=== PATIENT | female | born 1930 | race Asian ===

== ENCOUNTER 2018-06-18 05:57 | Inpatient (IN) | payer SELFPAY ==
[~2018-06-18] VITALS: Ht 162.6 cm; Wt 83.5 kg
[2018-06-18] MEDS ORDERED: Albuterol ud Inhalation HHN ONE ×2 (06:00→07:00)
[2018-06-18] MEDS ORDERED: Ipratropium 0.02% Inh Soln 2.5ml UD HHN ONE ×2 (06:00→07:00)
[2018-06-18] MEDS ORDERED: Solu-MEDROL 125mg Inj IVP ONE (06:00)
--- NOTE | 2018-06-18 06:00 | NUR ---
ED Nurse Note: Patient presents in wheelchair c/o SOB for 1 hour. Patient SpO2 at 100% on 15lpm non rebreather. Family are on bedside. Pt is AO x 4times, difficult breathing when assessment. ERMD seen Pt at bedside,
[2018-06-18] MEDS ORDERED: PREDNISONE5 M3 PO (06:02)
[2018-06-18] MEDS ORDERED: DOXYCYCLINE HYC20 M1 PO (06:02)
--- NOTE | 2018-06-18 06:27 | Emergency Room Report ---
History of Present Illness General Chief Complaint: Dyspnea/Respdistress Source: Family Member (Max Wilson MD) Source: Patient, Family Member (BENSON GABRIEL M.D) Present Illness HPI Patient is an 88-year-old female who presented after increased respiratory distress. Patient had a recent travel to the from [place]. Patient was noted to have some prior history of lung disease and had recently seen a physician was prescribed doxycycline as well as prednisone. Patient had not been taking any inhalers. She had been noted to have market increased difficulty with breathing and was having increased shortness of breath with minimal exertion. Patient does not have any known heart disease . Per family members patient had not been vomiting or having any diarrhea. She had not been having any complains of leg pain or swelling.Patient had not been having any fever.Patient had worsening difficulty breathing over the past few days. (Max Wilson MD) HPI 88-year-old female with a PMH of only some vague lung disease, recently traveled from [place] couple weeks ago, currently on doxy and prednisone started 3 days ago for a cough, c/o shortness of breath, dyspnea on exertion, no chest pain, no leg swelling, no hemoptysis, reports that she was given prescriptions for breathing treatments in [place] in the past but never takes them. (BENSON GABRIEL M.D) Allergies: Coded Allergies: No Known Allergies (Unverified , 06/18/18) Patient History Past Medical History: see triage record Last Menstrual Period: GABRIELA Now: No Reviewed Nursing Documentation: PMH: Agreed; PSxH: Agreed (Max Wilson MD) Past Medical History: see triage record Reviewed Nursing Documentation: PMH: Agreed; PSxH: Agreed (BENSON GABRIEL M.D) Nursing Documentation-PMH Past Medical History: No History, Except For Hx COPD: No - lung disease (Max Wilson MD) Review of Systems All Other Systems: negative except mentioned in HPI (Max Wilson MD) All Other Systems: negative except mentioned in HPI (BENSON GABRIEL M.D) Physical Exam Vital Signs Date Time Temp Pulse Resp B/P (MAP) Pulse Ox O2 Delivery O2 Flow Rate FiO2 06/18/18 05:58 122 30 189/128 100 Non-Rebreather 15.0 Sp02 EP Interpretation: reviewed, normal General Appearance: alert, GCS 15, moderate distress, thin, Chronically Ill Head: atraumatic ENT: normal ENT inspection, hearing grossly normal, normal voice Neck: normal inspection, full range of motion, supple, no bony tend Respiratory: no retraction, accessory muscle use, wheezing Cardiovascular #1: regular rate, rhythm, no edema Gastrointestinal: normal inspection, normal bowel sounds, non tender, soft, no guarding, no hernia Genitourinary: no CVA tenderness Musculoskeletal: normal inspection, back normal, normal range of motion Neurologic: normal inspection, alert, oriented x3, responsive, clinical nurse reviewer III-XII nml as tested, speech normal Psychiatric: normal inspection, judgement/insight normal, mood/affect normal Skin: normal inspection, normal color, no rash (Max Wilson MD) Sp02 EP Interpretation: reviewed, normal General Appearance: alert, non-toxic, moderate distress Head: normocephalic Eyes: bilateral eye normal inspection, bilateral eye PERRL, bilateral eye EOMI ENT: normal ENT inspection, hearing grossly normal, normal pharynx, no angioedema, normal voice, moist mucus membranes Neck: normal inspection, full range of motion, supple, supple/symm/no masses Respiratory: chest non-tender, respiratory distress, wheezing, chest symmetrical, palpation of chest normal Cardiovascular #1: normal peripheral pulses, regular rate, rhythm, no edema, no gallop, no JVD, no murmur, no rub Cardiovascular #2: 2+ radial (R), 2+ radial (L), 2+ dorsalis pedis (R), 2+ dorsalis pedis (L) Gastrointestinal: normal inspection, non tender, soft, no mass, no guarding, no rebound Rectal: deferred Genitourinary: normal inspection, no CVA tenderness Musculoskeletal: back normal, gait/station normal, normal range of motion, non- tender, no calf tenderness, Flora's Sign negative Neurologic: alert, responsive, clinical nurse reviewer III-XII nml as tested, motor strength/tone normal, sensory intact, speech normal Psychiatric: judgement/insight normal, memory normal, mood/affect normal, no suicidal/homicidal ideation Skin: normal color, no rash, warm/dry, normal turgor Lymphatic: no adenopathy (BENSON GABRIEL M.D) Procedures Critical Care Time Critical Care Time 45 mins excluding all procedures for severe respiratory distress requiring multiple continuous respiratory treatments (BENSON GABRIEL Medical Decision Making Diagnostic Impression: Primary Impression: Reactive airway disease with acute exacerbation ER Course Presents shortness of breath. Differential included but was not limited to COPD exacerbation, anemia, pneumonia, pneumothorax, myocardial infarction, pericardial effusion, congestive heart failure, acidosis. Because of complexity of patient's case laboratory testing and imaging studies were ordered.Patient was noted to have significant shortness of breath. She was started on supplemental oxygen and breathing treatments. Patient was given IV steroids. EKG interpreted by me showed normal sinus rhythm with a rate of [address] or T wave changes. Patient was noted to have marked motion artifact due to rapid respirations.Patient is noted to have some improvement respirations after IV steroids and breathing treatment.. Patient continued to have some difficulty breathing Patient was endorsed to Dr. Gabriel pending laboratory testing and likely admission to the hospital. (Max Wilson MD) ER Course Elderly patient with severe respiratory distress, had mild improvement with one nebulized treatment, but lungs with bilateral wheezing upon reevaluation, so now currently getting a full hour-long treatment, given IV steroids, no evidence for pneumonia on x-ray, normal cbc, normal pro BNP, patient without chest pain, no evidence for CHF, will admit for continued respiratory therapy. ABG with no hypoxia on nonrebreather therefore supplemental O2 reduced to 2L via NC. Diagnosis reactive airway disease. (BENSON GABRIEL M.D) EKG Diagnostic Results Rate: normal Rhythm: NSR ST Segments: no acute changes (Max Wilson MD) EKG Time: 06:19 EP Interpretation: no stemi Rate: normal Rhythm: NSR ST Segments: no acute changes ASA given to the pt in ED: Yes (BENSON GABRIEL M.D) Rhythm Strip Diag. Results Rhythm Strip Time: 07:06 EP Interpretation: yes Rate: 85 Rhythm: NSR, no PVC's, no ectopy (BENSON GABRIEL M.D) Chest X-Ray Diagnostic Results Chest X-Ray Diagnostic Results : Chest X-Ray Ordered: Yes # of Views/Limited/Complete: 1 View Indication: Shortness of Breath EP Interpretation: Yes Interpretation: no consolidation, no effusion, no pneumothorax, no acute cardiopulmonary disease Impression: No acute disease Electronically Signed by: Benson Gabriel MD (BENSON GABRIEL M.D) Last Vital Signs Date Time Temp Pulse Resp B/P (MAP) Pulse Ox O2 Delivery O2 Flow Rate FiO2 06/18/18 05:58 122 30 189/128 100 Non-Rebreather 15.0 Status: unchanged (Max Wilson MD) Disposition: ADMITTED INPATIENT Condition: Serious Signed Out To: Dr. Charles (BENSON GABRIEL M.D) Referrals: NOT CHOSEN IPA/,REFERRING (PCP) Max Wilson MD Jun 18, 2018 06:27 BENSON GABRIEL M.D Jun 18, 2018 07:10
--- NOTE | 2018-06-18 06:30 | NUR ---
ED Nurse Note: Blood sample sent to lab.
[2018-06-18 06:49] LABS: BASOPHILS % (AUTO) 0.6 % (0.0-2.0); EOSINOPHILS % (AUTO) 0.1 % (0.0-3.0); HEMATOCRIT 43.4 % (37.0-47.0); HEMOGLOBIN 14.6 G/DL (12.0-16.0); LYMPHOCYTES % (AUTO) 40.3 % (20.0-45.0); MEAN CORPUSCULAR VOLUME 91 FL (80-99); NEUTROPHILS % (AUTO) 49.9 % (45.0-75.0); PLATELET COUNT 212 K/UL (150-450); RED BLOOD COUNT 4.78 M/UL (4.20-5.40); RED CELL DISTRIBUTION WIDTH 11.7 % (11.6-14.8); WHITE BLOOD COUNT 9.6 K/UL (4.8-10.8)
[2018-06-18 06:55] VITALS: BP 147/99
[2018-06-18 07:05] LABS: ANION GAP 7 mmol/L (5-15); BLOOD UREA NITROGEN 24 mg/dL (7-18); CALCIUM 9.5 MG/DL (8.5-10.1); CARBON DIOXIDE 28 MMOL/L (21-32); CHLORIDE 103 MMOL/L (98-107); POTASSIUM 3.8 MMOL/L (3.5-5.1); SODIUM 138 MMOL/L (136-145)
--- NOTE | 2018-06-18 07:12 | NUR ---
HAND-OFF: Report given to Xiomara ALANIS.
[2018-06-18 07:16] LABS: ALANINE AMINOTRANSFERASE 17 U/L (12-78); ALBUMIN 4.1 G/DL (3.4-5.0); ALBUMIN/GLOBULIN RATIO 0.9 (1.0-2.7); ALKALINE PHOSPHATASE 89 U/L (46-116); ASPARTATE AMINO TRANSFERASE 20 U/L (15-37); BILIRUBIN,TOTAL 0.4 MG/DL (0.2-1.0)
--- NOTE | 2018-06-18 07:44 | NUR ---
ED Nurse Note: Report given to ZEKE Medina at ext [phone]. Pt to be transfered to room [facility] per protocol with all belongings, portable oxygen, and emergency box. Checked with Dr. Wyman that pt is ok to be transfered upstair.
[2018-06-18] MEDS ORDERED: Isovue-370 150ml vial INJ PRN (07:45)
--- NOTE | 2018-06-18 07:45 | NUR ---
NURSE NOTES: Received report from ZEKE Solano. Patient is alert and oriented at this time but speaks only Lorraine. Patient is sinus tachy on the court monitor at this time. Patient admitted for shortness of breath. Patient on room air at this time. Patient has not urinated this morning. Patient skin is intact at this time. Patient has right forearm 20G PIV that is patent and asymptomatic at this time. Patient received albuterol treatment, Atrovent treatment, 500mL NS bolus, and steroid in ER. Patient has an order for CTA. Will follow up when patient is brought to the floor.
[2018-06-18] MEDS: Aspirin EC 325mg tab ORAL SCH (07:51)
[2018-06-18] MEDS ORDERED: Aspirin EC 325mg tab ORAL ONE (07:51)
[2018-06-18 08:01] VITALS: BP 141/74
--- NOTE | 2018-06-18 08:30 | NUR ---
NURSE NOTES: Received patient from ER nurse at this time. Patient denies pain. Patient complaining that she has to use the bathroom. Patient able to ambulate with minimal assistance to the bathroom. Patient steady on her feet. Patient skin intact. Patient ambulates regularly at home. Patient complaining that she is cold. Patient showing signs of SOB when ambulating. Patient weight 186, BP 158/99, temp 97.5, HR 113, SpO2 94% and RR 21. Patient bed in low position with bed alarm on and call light in reach at this time. Family at this bedside.
--- NOTE | 2018-06-18 08:33 | NUR ---
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
[2018-06-18 08:36] VITALS: BP 158/99
--- NOTE | 2018-06-18 09:22 | Diagnostic Imaging Report ---
Indication: Shortness of breath Technique: One view of the chest Comparison: none Findings: No acute infiltrates, effusions, or congestion. Tortuous calcified aorta. Normal heart size. Upper mediastinum unremarkable. Impression: No acute process.
[2018-06-18] MEDS ORDERED: Nitroglycerin Subl 0.4mg tab SL PRN (10:15)
[2018-06-18] MEDS ORDERED: Promethazine/Codeine 5ml UD ORAL PRN (10:15)
[2018-06-18] MEDS ORDERED: LORazepam Inj 2mg/ml 1ml IV PRN (10:15)
[2018-06-18] MEDS ORDERED: Ketorolac 30mg Inj IV PRN (10:15)
[2018-06-18] MEDS ORDERED: Morphine Sulfate 2mg/ml Inj(IV/IM USE ONLY) IVP PRN (10:15)
[2018-06-18] MEDS ORDERED: Albuterol/Ipratropium 3ml neb HHN PRN (10:15)
--- NOTE | 2018-06-18 10:57 | NUR ---
CTA CHEST WITH COMPLETED.
[2018-06-18 12:00] VITALS: BP 128/78
--- NOTE | 2018-06-18 12:09 | Diagnostic Imaging Report ---
ndication: Shortness of breath Technique: IV administration nonionic contrast. Spiral acquisitions obtained from the lung bases to the lung apices. Multiplanar and 3-D reconstructions were generated. Total dose length product 710.81 mGycm. CTDIvol(s) 21.41 mGy. Dose reduction achieved using automated exposure control Comparison: none Findings: There is some image degradation due to respiratory motion artifact. There is adequate opacification of the pulmonary arteries. No definite intraluminal filling defects or other findings to suggest acute pulmonary embolus are demonstrated. Normal caliber pulmonary arteries. No evidence of right ventricular dilatation. No evidence of thoracic aortic aneurysm or dissection. The lungs demonstrate minimal scarring in the posterior periphery of the superior right upper lobe. A noncalcified 4 mm nodule is seen in the right lower lobe, image 39 series 8. Basilar atelectatic changes are seen bilaterally. Cystic spaces likely representing honeycombing and cystic bronchiectasis secondary to pulmonary fibrosis are seen in the periphery of the posterior right lower lobe and at the left lung base. Small focal area of honeycombing is seen in the left lung apex. No dense consolidation. No effusions, or masses. The heart size is upper limits of normal. No pericardial effusion. Prominent but not frankly enlarged mediastinal lymph nodes are demonstrated. 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 It is unclear what the left superior vena cava drains into although probably the right atrium the thyroid is unremarkable. No axillary or chest wall mass or adenopathy. Unremarkable esophagus The included upper abdominal anatomy is unremarkable. There are compression fracture deformities of the T6 and T9 vertebral bodies. Impression: Negative for evidence of acute pulmonary embolus Areas of scarring, as described. Cystic spaces in both lower lobes may represent pulmonary fibrosis with cystic bronchiectasis No definite acute pulmonary process Noncalcified 4 mm right lower lobe nodule. 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 Consider MRI for better characterization if clinically relevant The CT scanner at [facility] is accredited by the [employer] and the scans are performed using protocols designed to limit radiation exposure to as low as reasonably achievable to attain images of sufficient resolution adequate for diagnostic evaluation.
[2018-06-18] MEDS: Solu-MEDROL 125mg Inj IV SCH ×3 (12:24→23:49)
[2018-06-18] MEDS ORDERED: Piperacillin/Tazobactam 2.25 GM in D5W 55 ML IV SCH (14:00)
[2018-06-18] MEDS: Zoysn 3.37gm in NS 100ML IVPB SCH ×2 (14:52→22:10)
[2018-06-18 16:00] VITALS: BP 147/87
--- NOTE | 2018-06-18 19:14 | History & Physical ---
History and Physical History & Physicial Dictated for Int Med-Dr Suarez no. [id number]. Brandon Pepe MD Jun 18, 2018 19:14
--- NOTE | 2018-06-18 19:29 | NUR ---
HAND-OFF: Report given to ZEKE Aldana. Patient VS stable at this time with no sign of acute distress. Patient on 2L NC at this time due to an episode of SOB earlier in the day that was relieved by duo-neb breathing treatment.
--- NOTE | 2018-06-18 19:30 | NUR ---
NURSE NOTES: Received patient from Carol ALANIS. Patient is awake and oriented x4. Two family members are in the room. Patient is on room air and saturating well. Patient can ambulate to the restroom. IV site is a Right Forearm 20g, patent and asymptomatic. Bed is locked, placed in lowest position, side rails up x2, call light within reach. Will continue to monitor.
[2018-06-18 20:00] VITALS: BP 149/86
[2018-06-18] MEDS: Heparin 5000 units/ml inj SUBQ SCH (21:18)
[2018-06-18] MEDS: Theophylline ER 100mg ORAL SCH (21:18)
[2018-06-19] VITALS: BP 146/90
--- NOTE | 2018-06-19 00:15 | History and Physical Report ---
DATE OF ADMISSION: 06/18/2018 CHIEF COMPLAINT: The patient is an 88-year-old female, who presents with a chief complaint of shortness of breath. HISTORY OF PRESENT ILLNESS: The patient is visiting from [place]. The patient has been in the [place] for 3 months. The patient herself speaks Lorraine, Momo. Much of the history and physical is taken from the patient's grandson who is at the bedside. The patient has had increasing shortness of breath over the last 3 months. The patient normally gets short of breath after walking a short distance. According to the patient's grandson, this morning, patient was going to the bathroom. The patient became acutely short of breath. A 911 was called. The patient was transported to [place] emergency room. The patient is admitted with shortness of breath to rule out acute asthma attack versus bronchitis. The patient saw her primary care physician 1 month ago. The patient was given prednisone for wheezing. The patient finished prednisone taper without relief. The patient went back to her primary care physician on 06/15/2018. The patient was given a prednisone taper and doxycycline. According to the patient's grandson, the patient was going to the bathroom this morning. The patient became acutely short of breath. The patient was transported via EMS to [facility]. The patient was admitted for acute respiratory distress. REVIEW OF SYSTEMS: CONSTITUTIONAL: The patient denies weight loss or weight gain. The patient denies fevers or chills. HEENT: The patient denies ear or throat pain. The patient denies headache. CARDIOVASCULAR: The patient denies palpitations or chest pain. CHEST: The patient complains of shortness of breath as above. The patient complains of wheezing. ABDOMEN: The patient denies nausea, vomiting, diarrhea, or constipation. GENITOURINARY: The patient denies dysuria or increased frequency of urination. NEUROMUSCULAR: The patient denies seizures or generalized weakness. PAST MEDICAL HISTORY: The patient denies. PAST SURGICAL HISTORY: The patient denies. CURRENT MEDICATIONS: 1. Doxycycline 100 mg p.o. twice daily since 06/15/2018. 2. Prednisone taper since 06/15/2018. ALLERGIES: No known drug allergies. SOCIAL HISTORY: The patient is a . The patient is visiting from [place] for the past 3 months ago. The patient denies tobacco or alcohol use. PHYSICAL EXAMINATION: VITAL SIGNS: Temperature 97.5, respirations 21, pulse 113, blood pressure 158/99, and pulse ox is 95 percent. GENERAL: The patient is a well-developed and well-nourished female, in no apparent distress. HEENT: Eyes, pupils are equal and responsive to light and accommodation. Extraocular movements are intact. NECK: Supple without lymphadenopathy. CHEST: Diffuse wheezes in the bilateral lung field, but otherwise, without crackles. ABDOMEN: Soft, nontender, and nondistended. Positive bowel sounds. No evidence of hepatosplenomegaly. Currently, no rebound or guarding noted. EXTREMITIES: Negative for clubbing, cyanosis, or edema. RECTAL/GENITAL: Refused. NEUROLOGIC: Cranial nerves II through XII are grossly intact without focal deficits. Motor strength is 5/5 bilaterally. Deep tendon reflexes are 2+ plantar. IMAGING: Chest x-ray was reported as no acute disease. A CT angiogram of the chest was negative for pulmonary embolism. There were areas of scarring and cystic spaces in bilateral lower lobes consistent with pulmonary fibrosis and cystic bronchiectasis. LABORATORY STUDIES: WBC 9.6, hemoglobin 14.6, hematocrit 43.4, and platelets 212,000. Sodium 138, potassium 3.8, chloride 103, CO2 28, BUN 24, creatinine 1.0, and glucose 123. Troponin 0.015. Blood gas reveals pH 7.307, pCO2 44.3, pO2 348.7, bicarb 21.7, oxygen saturation 99.1, and base excess -4.6. ASSESSMENT: This is an 88-year-old female. 1. Respiratory distress. 2. Shortness of breath. 3. Pulmonary fibrosis. TREATMENT: Pulmonary fibrosis/respiratory distress/shortness of breath. A Pulmonary consultation has been obtained with Dr. Steve Olivas. The patient has been started empirically on intravenous Zosyn. The patient has also been started on intravenous Solu-Medrol. We will follow recommendation of Pulmonary. Brandon Pepe M.D. DR: MELISSA JOB#: [id number] CC:
[2018-06-19 04:00] VITALS: BP 145/95
[2018-06-19 05:04] LABS: BASOPHILS % (AUTO) 0.2 % (0.0-2.0); HEMATOCRIT 37.6 % (37.0-47.0); HEMOGLOBIN 12.6 G/DL (12.0-16.0); LYMPHOCYTES % (AUTO) 11.6 % (20.0-45.0); MEAN CORPUSCULAR VOLUME 90 FL (80-99); MONOCYTES % (AUTO) 3.5 % (1.0-10.0); NEUTROPHILS % (AUTO) 84.7 % (45.0-75.0); PLATELET COUNT 197 K/UL (150-450); RED BLOOD COUNT 4.17 M/UL (4.20-5.40); RED CELL DISTRIBUTION WIDTH 11.7 % (11.6-14.8); WHITE BLOOD COUNT 7.3 K/UL (4.8-10.8)
[2018-06-19 05:18] LABS: ANION GAP 8 mmol/L (5-15); BLOOD UREA NITROGEN 28 mg/dL (7-18); CALCIUM 9.1 MG/DL (8.5-10.1); CARBON DIOXIDE 27 MMOL/L (21-32); CHLORIDE 106 MMOL/L (98-107); CREATININE 1.3 MG/DL (0.55-1.30); SODIUM 141 MMOL/L (136-145)
[2018-06-19] MEDS: Zoysn 3.37gm in NS 100ML IVPB SCH ×2 (06:12→13:28)
[2018-06-19] MEDS: Solu-MEDROL 125mg Inj IV SCH ×3 (06:12→17:05)
--- NOTE | 2018-06-19 07:26 | NUR ---
HAND-OFF: Report given to Taya ALANIS. Patient showing no signs of distress.
--- NOTE | 2018-06-19 07:27 | NUR ---
NURSE NOTES: Received patient in bed. On room air, no respiratory distress. Call light within reach. Patient's family at bedside. No facial grimace, verbal. Will continue plan of care.
[2018-06-19 08:00] VITALS: BP 147/90
[2018-06-19] MEDS: Aspirin EC 325mg tab ORAL SCH (09:21)
[2018-06-19] MEDS: Theophylline ER 100mg ORAL SCH ×2 (09:21→21:00)
[2018-06-19] MEDS: Heparin 5000 units/ml inj SUBQ SCH ×2 (09:21→21:01)
--- NOTE | 2018-06-19 09:56 | Consultation ---
History of Present Illness General Date patient seen: Jun 19, 2018 Chief Complaint: Dyspnea/Respdistress Present Illness HPI 88-year-old female with a PMH of unspecified lung disease, presented to ER with CC of cough, c/o shortness of breath, dyspnea on exertion, currently on doxy and prednisone started 3 days ago. no chest pain, no leg swelling, no hemoptysis, reports that she was given prescriptions for breathing treatments in [place] in the past but never takes them. She meanwhile had a CTA to rule out PE, which was negative. Allergies: Coded Allergies: No Known Allergies (Unverified , 06/18/18) Medication History Miscellaneous Medications Doxycycline Hyclate (Doxycycline Hyclate), Unknown Dose PO, (Reported) Prednisone (Prednisone), Unknown Dose PO, (Reported) Patient History Healthcare decision maker Resuscitation status Full Code Advanced Directive on File Past Medical/Surgical History Past Medical/Surgical History: (1) Chronic lung disease Review of Systems All Other Systems: negative except mentioned in HPI Physical Exam Lines, tubes and drains: peripheral HEENT: normocephalic, atraumatic Neck: non-tender, normal alignment Respiratory/Chest: chest wall non-tender, lungs clear Breasts: no masses Cardiovascular/Chest: normal rate Abdomen: soft Genitourinary/Rectal: normal genital exam Last 24 Hour Vital Signs Date Time Temp Pulse Resp B/P (MAP) Pulse Ox O2 Delivery O2 Flow Rate FiO2 06/19/18 08:00 Room Air 06/19/18 08:00 97.3 75 20 147/90 (109) 96 06/19/18 07:45 72 06/19/18 04:00 97.0 97 18 145/95 (112) 94 83 06/19/18 04:00 Room Air 06/19/18 03:34 83 06/19/18 01:35 95 18 Room Air 21 06/19/18 00:00 Room Air 06/19/18 00:00 87 06/19/18 00:00 97.5 84 17 146/90 (108) 96 84 06/18/18 20:00 103 06/18/18 20:00 98.6 94 16 149/86 (107) 94 94 06/18/18 20:00 Room Air 06/18/18 16:21 85 22 96 Nasal Cannula 2.0 28 06/18/18 16:00 Room Air 06/18/18 16:00 97.9 90 24 147/87 (107) 100 103 06/18/18 16:00 91 06/18/18 12:00 97.7 103 20 128/78 (95) 95 103 06/18/18 12:00 108 06/18/18 12:00 Room Air 06/18/18 10:13 Room Air Intake and Output 06/18/18 06/19/18 19:00 07:00 Intake Total 150.0 ml 82.5 ml Output Total 100 ml 300 ml Balance 50.0 ml -217.5 ml Intake Oral 40 ml IV Total 110.0 ml 82.5 ml Output Urine Total 100 ml 300 ml # Voids 2 3 Laboratory Tests Test 06/19/18 03:10 White Blood Count 7.3 K/UL (4.8-10.8) Red Blood Count 4.17 M/UL (4.20-5.40) L Hemoglobin 12.6 G/DL (12.0-16.0) Hematocrit 37.6 % (37.0-47.0) Mean Corpuscular Volume 90 FL (80-99) Mean Corpuscular Hemoglobin 30.3 PG (27.0-31.0) Mean Corpuscular Hemoglobin Concent 33.5 G/DL (32.0-36.0) Red Cell Distribution Width 11.7 % (11.6-14.8) Platelet Count 197 K/UL (150-450) Mean Platelet Volume 6.8 FL (6.5-10.1) Neutrophils (%) (Auto) 84.7 % (45.0-75.0) H Lymphocytes (%) (Auto) 11.6 % (20.0-45.0) L Monocytes (%) (Auto) 3.5 % (1.0-10.0) Eosinophils (%) (Auto) 0.0 % (0.0-3.0) Basophils (%) (Auto) 0.2 % (0.0-2.0) Sodium Level 141 MMOL/L (136-145) Potassium Level 4.0 MMOL/L (3.5-5.1) Chloride Level 106 MMOL/L (98-107) Carbon Dioxide Level 27 MMOL/L (21-32) Anion Gap 8 mmol/L (5-15) Blood Urea Nitrogen 28 mg/dL (7-18) H Creatinine 1.3 MG/DL (0.55-1.30) Estimat Glomerular Filtration Rate mL/min (>60) Glucose Level 142 MG/DL (74-106) H Calcium Level 9.1 MG/DL (8.5-10.1) Height (Feet): 5 Height (Inches): 4.00 Weight (Pounds): 184 Medications Current Medications Medications (Trade) Dose Ordered Sig/Kevin Route PRN Reason Start Time Stop Time Status Last Admin Dose Admin Albuterol/ Ipratropium (Albuterol/ Ipratropium) 3 ml Q4H PRN HHN dyspnea 06/18/18 10:15 06/23/18 10:14 06/18/18 16:21 Aspirin (Ecotrin) 325 mg DAILY ORAL 06/18/18 09:00 07/18/18 08:59 06/19/18 09:21 Dextrose (Dextrose 50%) 25 ml Q30M PRN IV Hypoglycemia 06/18/18 10:15 07/18/18 10:14 Dextrose (Dextrose 50%) 50 ml Q30M PRN IV Hypoglycemia 06/18/18 10:15 07/18/18 10:14 Heparin Sodium (Porcine) (Heparin 5000 units/ml) 5,000 units EVERY 12 HOURS SUBQ 06/18/18 21:00 07/18/18 20:59 06/19/18 09:21 Iopamidol (Isovue-370 150ml) 150 ml NOW PRN INJ Radiology Procedure 06/18/18 07:45 06/20/18 07:40 Methylprednisolone Sodium Succinate (Solu-MEDROL) 60 mg EVERY 6 HOURS IV 06/18/18 12:00 07/18/18 11:59 06/19/18 06:12 Nitroglycerin (Ntg) 0.4 mg Q5M X 3 DOSES PRN SL Prn Chest Pain 06/18/18 10:15 07/18/18 10:14 Ondansetron HCl (Zofran) 4 mg Q6H PRN IVP Nausea & Vomiting 06/18/18 10:15 07/18/18 10:14 Piperacillin Sod/ Tazobactam Sod 3.375 gm/Sodium Chloride 110 ml @ 27.5 mls/hr EVERY 8 HOURS IVPB 06/18/18 14:00 06/23/18 13:59 06/19/18 06:12 Promethazine HCl/ Codeine (Phenergan with Codeine) 5 ml Q6H PRN ORAL cough 06/18/18 10:15 07/18/18 10:14 Temazepam (Restoril) 15 mg HSPRN PRN ORAL Insomnia 06/18/18 10:15 06/25/18 10:14 Theophylline (Stephen-Dur) 100 mg EVERY 12 HOURS ORAL 06/18/18 21:00 07/18/18 20:59 06/19/18 09:21 Assessment/Plan Problem List: (1) Acute asthma exacerbation ICD Codes: J45.901 - Unspecified asthma with (acute) exacerbation SNOMED: 921977309 (2) Purulent bronchitis ICD Codes: J41.1 - Mucopurulent chronic bronchitis SNOMED: 42313089 Diagnosis [place] I: respiratory treatment IV steroids IV abx check sputum dvt prophylaxis check electrolytes. Steve Olivas MD Jun 19, 2018 09:56
[2018-06-19 12:00] VITALS: BP 139/81
[2018-06-19] MEDS ORDERED: Vancomycin 500mg/D5W 110ml IVPB SCH ×2 (12:00)
--- NOTE | 2018-06-19 12:15 | NUR ---
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 PURULENT BRONCHITIS VS: BP 147/90, P 97, T 97.0, RR 20 SpO2 94 BUN 28, RBC 4.17 CHEST/THORAX CTA Impression: Negative for evidence of acute pulmonary embolus IS:VANCOMYCIN 110ml IVPB HEPARIN SUBQ GIANCARLO-DUR 100mg ZOSYN 110ml IVPB SOLU-MEDROL 60mg IV SDU STATUS
[2018-06-19] MEDS ORDERED: Promethazine/Codeine 5ml UD ORAL PRN (13:58)
[2018-06-19] MEDS ORDERED: Nitroglycerin Subl 0.4mg tab SL PRN (14:00)
--- NOTE | 2018-06-19 14:00 | NUR ---
TRANSFER TO FLOOR: Patient transferred to MED SURG ROOM 421-1, per DR. YANES. Report given to ZEKE LORD. Belongings reviewed and medications given to ZEKE LORD. Family at bedside and informed of transfer. Remains stable, on room air. No respiratory distress.
--- NOTE | 2018-06-19 14:13 | NUR ---
NURSE NOTES: Received pt from ZEKE Bain(ANTOINE) with stable condition. pt is a/ox4. Breathing regular and unlabored. denies any pain at this time. Family member at bedside. All belongings checked and kept at bedside. Fall precaution provided. bed in lowest position. Call light within reach at all time. will continue to monitor
[2018-06-19 15:58] VITALS: BP 144/83
--- NOTE | 2018-06-19 18:41 | Internal Med Progress Note ---
Subjective Date of Service: Jun 19, 2018 Physician Name Brandon Pepe Attending Physician Darrel Suarez MD Current Medications Medications (Trade) Dose Ordered Sig/Kevin Route PRN Reason Start Time Stop Time Status Last Admin Dose Admin Albuterol/ Ipratropium (Albuterol/ Ipratropium) 3 ml Q4H PRN HHN dyspnea 06/19/18 13:57 06/24/18 13:56 Aspirin (Ecotrin) 325 mg DAILY ORAL 06/20/18 09:00 07/18/18 08:59 Dextrose (Dextrose 50%) 25 ml Q30M PRN IV Hypoglycemia 06/19/18 14:15 07/18/18 10:14 Dextrose (Dextrose 50%) 50 ml Q30M PRN IV Hypoglycemia 06/19/18 14:15 07/18/18 10:14 Heparin Sodium (Porcine) (Heparin 5000 units/ml) 5,000 units EVERY 12 HOURS SUBQ 06/19/18 21:00 07/18/18 20:59 Iopamidol (Isovue-370 150ml) 150 ml NOW PRN INJ Radiology Procedure 06/20/18 07:45 07/20/18 07:44 Methylprednisolone Sodium Succinate (Solu-MEDROL) 60 mg EVERY 6 HOURS IV 06/19/18 18:00 07/18/18 11:59 06/19/18 17:05 Nitroglycerin (Ntg) 0.4 mg Q5M X 3 DOSES PRN SL Prn Chest Pain 06/19/18 14:00 07/18/18 10:14 Ondansetron HCl (Zofran) 4 mg Q6H PRN IVP Nausea & Vomiting 06/19/18 13:58 07/19/18 13:57 Piperacillin Sod/ Tazobactam Sod 3.375 gm/Sodium Chloride 110 ml @ 27.5 mls/hr EVERY 8 HOURS IVPB 06/19/18 22:00 06/23/18 21:59 Promethazine HCl/ Codeine (Phenergan with Codeine) 5 ml Q6H PRN ORAL cough 06/19/18 13:58 07/19/18 13:57 Temazepam (Restoril) 15 mg HSPRN PRN ORAL Insomnia 06/19/18 13:58 06/26/18 13:57 Theophylline (Stephen-Dur) 100 mg EVERY 12 HOURS ORAL 06/19/18 21:00 07/18/18 20:59 Vancomycin HCl (Vanco rx to dose) 1 ea DAILY PRN MISC Per rx protocol 06/20/18 09:00 07/19/18 10:29 Vancomycin HCl 500 mg/Dextrose 110 ml @ 110 mls/hr Q12HR@0000,1200 IVPB 06/20/18 00:00 06/24/18 11:59 Allergies: Coded Allergies: No Known Allergies (Unverified , 06/18/18) ROS Limited/Unobtainable: No Constitutional: Reports: no symptoms HEENT: Reports: no symptoms Cardiovascular: Reports: no symptoms Respiratory: Reports: shortness of breath Gastrointestinal/Abdominal: Reports: no symptoms Genitourinary: Reports: no symptoms Neurologic/Psychiatric: Reports: no symptoms Subjective 88 YO F admitted with shortness of breath. Now pulmonary fibrosis. Cover for Int [facility]-Dr Suarez Objective Last Vital Signs Date Time Temp Pulse Resp B/P (MAP) Pulse Ox O2 Delivery O2 Flow Rate FiO2 06/19/18 15:58 97.7 86 20 144/83 (103) 93 06/19/18 12:00 Room Air 06/19/18 01:35 21 06/18/18 16:21 2.0 Laboratory Tests Test 06/19/18 03:10 White Blood Count 7.3 K/UL (4.8-10.8) Red Blood Count 4.17 M/UL (4.20-5.40) L Hemoglobin 12.6 G/DL (12.0-16.0) Hematocrit 37.6 % (37.0-47.0) Mean Corpuscular Volume 90 FL (80-99) Mean Corpuscular Hemoglobin 30.3 PG (27.0-31.0) Mean Corpuscular Hemoglobin Concent 33.5 G/DL (32.0-36.0) Red Cell Distribution Width 11.7 % (11.6-14.8) Platelet Count 197 K/UL (150-450) Mean Platelet Volume 6.8 FL (6.5-10.1) Neutrophils (%) (Auto) 84.7 % (45.0-75.0) H Lymphocytes (%) (Auto) 11.6 % (20.0-45.0) L Monocytes (%) (Auto) 3.5 % (1.0-10.0) Eosinophils (%) (Auto) 0.0 % (0.0-3.0) Basophils (%) (Auto) 0.2 % (0.0-2.0) Sodium Level 141 MMOL/L (136-145) Potassium Level 4.0 MMOL/L (3.5-5.1) Chloride Level 106 MMOL/L (98-107) Carbon Dioxide Level 27 MMOL/L (21-32) Anion Gap 8 mmol/L (5-15) Blood Urea Nitrogen 28 mg/dL (7-18) H Creatinine 1.3 MG/DL (0.55-1.30) Estimat Glomerular Filtration Rate mL/min (>60) Glucose Level 142 MG/DL (74-106) H Calcium Level 9.1 MG/DL (8.5-10.1) Microbiology Date/Time Source Procedure Growth Status 06/18/18 06:15 Blood Blood Culture - Preliminary Resulted 06/18/18 06:00 Blood Blood Culture - Preliminary Resulted 06/18/18 15:01 Sputum Gram Stain - Final Resulted 06/18/18 15:01 Sputum Sputum Culture Pending Resulted 06/18/18 07:55 Nasal Nares - Final Complete 06/18/18 07:55 Nasal Nares - Final Complete Intake and Output 06/18/18 06/19/18 19:00 07:00 Intake Total 150.0 ml 82.5 ml Output Total 100 ml 300 ml Balance 50.0 ml -217.5 ml Intake Oral 40 ml IV Total 110.0 ml 82.5 ml Output Urine Total 100 ml 300 ml # Voids 2 3 Objective PHYSICAL EXAMINATION: GENERAL: The patient is a well-developed and well-nourished female, in no apparent distress. HEENT: Eyes, pupils are equal and responsive to light and accommodation. Extraocular movements are intact. NECK: Supple without lymphadenopathy. CHEST: Diffuse wheezes in the bilateral lung field, but otherwise, without crackles. ABDOMEN: Soft, nontender, and nondistended. Positive bowel sounds. No evidence of hepatosplenomegaly. Currently, no rebound or guarding noted. EXTREMITIES: Negative for clubbing, cyanosis, or edema. RECTAL/GENITAL: Refused. NEUROLOGIC: Cranial nerves II through XII are grossly intact without focal deficits. Motor strength is 5/5 bilaterally. Deep tendon reflexes are 2+ plantar. Assessment/Plan Assessment/Plan ASSESSMENT: This is an 88-year-old female. 1. Respiratory distress. 2. Shortness of breath. 3. Pulmonary fibrosis. TREATMENT: Pulmonary fibrosis/respiratory distress/shortness of breath. A Pulmonary consultation has been obtained with Dr. Steve Olivas. The patient has been started empirically on intravenous Zosyn. The patient has also been started on intravenous Solu-Medrol. We will follow recommendation of Pulmonary. Brandon Pepe MD Jun 19, 2018 18:41
--- NOTE | 2018-06-19 19:00 | NUR ---
NURSE NO Received pt. and report from ZEKE Jo. Observe pt. resting in bed with both eyes open and family at bedside. Pt. is A/Ox4. IV site intact, asymptomatic, and patent. Bed is in the lowest position and locked, call light within reach. No signs/symptoms of acute distress noted at this time. Will continue plan of care.
--- NOTE | 2018-06-19 19:14 | NUR ---
HAND-OFF: Report given to My,RN.
[2018-06-19 20:00] VITALS: BP_SYST 131; BP_SYST 148; BP_DIAS 72; BP_DIAS 81
--- NOTE | 2018-06-19 21:59 | Cardiology Report ---
APPROVED REPORT EKG Measurement Heart [id number] Normal sinus rhythm Left axis deviation Inferior infarct, age undetermined Anterior infarct, age undetermined Abnormal ECG
[2018-06-19] MEDS: Piperacillin/Tazobactam 3.375 GM in NS 110 ML IVPB SCH (22:08)
[2018-06-20] VITALS: BP 148/81
[2018-06-20] MEDS: Vancomycin 500 MG in D5W 110 ML IVPB SCH ×2 (00:21→12:24)
[2018-06-20] MEDS: Solu-MEDROL 125mg Inj IV SCH ×4 (00:23→18:03)
--- NOTE | 2018-06-20 01:23 | NUR ---
HAND-OFF: Report given to ZEKE Aragon.
[2018-06-20 04:00] VITALS: BP 143/90
[2018-06-20] MEDS: Piperacillin/Tazobactam 3.375 GM in NS 110 ML IVPB SCH (06:15)
--- NOTE | 2018-06-20 07:38 | NUR ---
HAND-OFF: Report given to ZEKE Yeh.
--- NOTE | 2018-06-20 07:40 | NUR ---
NURSE NOTES: Received patient in bed, awake, not in acute distress. No wheezing or congestion. Denies SOB. IV intact, no s/s of infiltration. Bed is in lowest position and locked. Call light within reach. Will continue plan of care.
[2018-06-20] MEDS ORDERED: Isovue-370 150ml vial INJ PRN (07:45)
[2018-06-20 08:00] VITALS: BP 133/70
[2018-06-20] MEDS: Theophylline ER 100mg ORAL SCH ×2 (08:50→21:04)
[2018-06-20] MEDS: Heparin 5000 units/ml inj SUBQ SCH ×2 (08:51→21:09)
[2018-06-20] MEDS ORDERED: Aspirin EC 325mg tab ORAL SCH (09:00)
[2018-06-20] MEDS ORDERED: NS 275ml ONE (10:18)
[2018-06-20] MEDS ORDERED: Tubing IV Secondary IV ONE (10:18)
--- NOTE | 2018-06-20 10:43 | Pulmonology Progress Note ---
Assessment/Plan Problems: (1) Acute asthma exacerbation (2) Purulent bronchitis Assessment/Plan still wheezing continue current dose of sterids continue abx theophylline Subjective ROS Limited/Unobtainable: No Allergies: Coded Allergies: No Known Allergies (Unverified , 06/18/18) Objective Last 24 Hour Vital Signs Date Time Temp Pulse Resp B/P (MAP) Pulse Ox O2 Delivery O2 Flow Rate FiO2 06/20/18 08:00 98.3 75 18 133/70 (91) 94 06/20/18 04:00 97.5 74 17 143/90 (107) 94 06/20/18 00:00 98.6 74 16 148/81 (103) 94 06/19/18 21:57 92 18 Room Air 21 06/19/18 21:00 Room Air 06/19/18 20:00 98.8 85 17 131/72 (91) 93 06/19/18 15:58 97.7 86 20 144/83 (103) 93 06/19/18 12:22 92 06/19/18 12:00 Room Air 06/19/18 12:00 97.3 80 20 139/81 (100) 95 Intake and Output 06/19/18 06/20/18 19:00 07:00 Intake Total 460.0 ml Balance 460.0 ml Intake Oral 240 ml IV Total 220.0 ml # Voids 2 Objective General Appearance: WD/WN Lines, tubes and drains: peripheral HEENT: normocephalic, atraumatic Neck: non-tender, normal alignment Respiratory/Chest: chest wall non-tender, lungs clear Cardiovascular/Chest: normal peripheral pulses, normal rate Abdomen: normal bowel sounds Extremities: normal range of motion Microbiology Date/Time Source Procedure Growth Status 06/18/18 06:15 Blood Blood Culture - Preliminary Staphylococcus Sp Coag Neg Resulted 06/18/18 06:00 Blood Blood Culture - Preliminary Staphylococcus Sp Coag Neg Resulted 06/18/18 15:01 Sputum Gram Stain - Final Resulted 06/18/18 15:01 Sputum Culture - Preliminary MOLD Usual Upper Respiratory Marielos Resulted 06/18/18 07:55 Nasal Nares - Final Complete 06/18/18 07:55 Nasal Nares - Final Complete Current Medications Medications (Trade) Dose Ordered Sig/Kevin Route PRN Reason Start Time Stop Time Status Last Admin Dose Admin Albuterol/ Ipratropium (Albuterol/ Ipratropium) 3 ml Q4H PRN HHN dyspnea 06/19/18 13:57 06/24/18 13:56 Aspirin (Ecotrin) 325 mg DAILY ORAL 06/20/18 09:00 07/18/18 08:59 06/20/18 08:51 Dextrose (Dextrose 50%) 25 ml Q30M PRN IV Hypoglycemia 06/19/18 14:15 07/18/18 10:14 Dextrose (Dextrose 50%) 50 ml Q30M PRN IV Hypoglycemia 06/19/18 14:15 07/18/18 10:14 Heparin Sodium (Porcine) (Heparin 5000 units/ml) 5,000 units EVERY 12 HOURS SUBQ 06/19/18 21:00 07/18/18 20:59 06/20/18 08:51 Iopamidol (Isovue-370 150ml) 150 ml NOW PRN INJ Radiology Procedure 06/20/18 07:45 07/20/18 07:44 Methylprednisolone Sodium Succinate (Solu-MEDROL) 60 mg EVERY 6 HOURS IV 06/19/18 18:00 07/18/18 11:59 06/20/18 06:22 Nitroglycerin (Ntg) 0.4 mg Q5M X 3 DOSES PRN SL Prn Chest Pain 06/19/18 14:00 07/18/18 10:14 Ondansetron HCl (Zofran) 4 mg Q6H PRN IVP Nausea & Vomiting 06/19/18 13:58 07/19/18 13:57 Piperacillin Sod/ Tazobactam Sod 3.375 gm/Sodium Chloride 110 ml @ 27.5 mls/hr EVERY 8 HOURS IVPB 06/19/18 22:00 06/23/18 21:59 06/20/18 06:15 Promethazine HCl/ Codeine (Phenergan with Codeine) 5 ml Q6H PRN ORAL cough 06/19/18 13:58 07/19/18 13:57 06/20/18 08:50 Temazepam (Restoril) 15 mg HSPRN PRN ORAL Insomnia 06/19/18 13:58 06/26/18 13:57 Theophylline (Stephen-Dur) 100 mg EVERY 12 HOURS ORAL 06/19/18 21:00 07/18/18 20:59 06/20/18 08:50 Vancomycin HCl (Vanco rx to dose) 1 ea DAILY PRN MISC Per rx protocol 06/20/18 09:00 07/19/18 10:29 Vancomycin HCl 500 mg/Dextrose 110 ml @ 110 mls/hr Q12HR@0000,1200 IVPB 06/20/18 00:00 06/24/18 11:59 06/20/18 00:21 Steve Olivas MD Jun 20, 2018 10:43
--- NOTE | 2018-06-20 11:12 | Consultation ---
History of Present Illness General Date patient seen: Jun 20, 2018 Chief Complaint: Dyspnea/Respdistress Present Illness HPI 88 y/o F with hx of unspecified lung disease presented to ED on 06/18 with cough , SOB, TREVINO. Upon admission she was on day 3 of doxycycline and prednisone. CTA chest done upon admission neg for PE. 1 week [employer] patient saw her PCP which gave her a course of prednisone with no significant improvement. She came back and was given prednisone taper and doxycycline. Of note, patient had recent travel to the [place] from [place] (she is from [facility], visiting out here; she has been in the [place] 3 months now) Denied CP, Leg swelling, hemoptysis, v/d, f/c upon admission. Allergies: Coded Allergies: No Known Allergies (Unverified , 06/18/18) Medication History Miscellaneous Medications Doxycycline Hyclate (Doxycycline Hyclate), Unknown Dose PO, (Reported) Prednisone (Prednisone), Unknown Dose PO, (Reported) Patient History Healthcare decision maker Resuscitation status Full Code Advanced Directive on File Patient History Narrative Pmhx: as above Shx: The patient is a . The patient is visiting from [facility] for the past 3 months ago. The patient denies tobacco or alcohol use. Fhx: non contributory Review of Systems All Other Systems: negative except mentioned in HPI Physical Exam Physical Exam Narrative GENERAL: The patient is a well-developed and well-nourished female, in no apparent distress. HEENT: Eyes, pupils are equal and responsive to light and accommodation. Extraocular movements are intact. NECK: Supple without lymphadenopathy. CHEST: Diffuse wheezes in the bilateral lung field, but otherwise, without crackles. ABDOMEN: Soft, nontender, and nondistended. Positive bowel sounds. No evidence of hepatosplenomegaly. Currently, no rebound or guarding noted. EXTREMITIES: Negative for clubbing, cyanosis, or edema. NEUROLOGIC: Cranial nerves II through XII are grossly intact without focal deficits. Motor strength is 5/5 bilaterally. Deep tendon reflexes are 2+ plantar. Last 24 Hour Vital Signs Date Time Temp Pulse Resp B/P (MAP) Pulse Ox O2 Delivery O2 Flow Rate FiO2 06/20/18 08:00 98.3 75 18 133/70 (91) 94 06/20/18 04:00 97.5 74 17 143/90 (107) 94 06/20/18 00:00 98.6 74 16 148/81 (103) 94 06/19/18 21:57 92 18 Room Air 21 06/19/18 21:00 Room Air 06/19/18 20:00 98.8 85 17 131/72 (91) 93 06/19/18 15:58 97.7 86 20 144/83 (103) 93 06/19/18 12:22 92 06/19/18 12:00 Room Air 06/19/18 12:00 97.3 80 20 139/81 (100) 95 Intake and Output 06/19/18 06/20/18 19:00 07:00 Intake Total 460.0 ml Balance 460.0 ml Intake Oral 240 ml IV Total 220.0 ml # Voids 2 Height (Feet): 5 Height (Inches): 4.00 Weight (Pounds): 184 Medications Current Medications Medications (Trade) Dose Ordered Sig/Kevin Route PRN Reason Start Time Stop Time Status Last Admin Dose Admin Albuterol/ Ipratropium (Albuterol/ Ipratropium) 3 ml Q4H PRN HHN dyspnea 06/19/18 13:57 06/24/18 13:56 Dextrose (Dextrose 50%) 25 ml Q30M PRN IV Hypoglycemia 06/19/18 14:15 07/18/18 10:14 Dextrose (Dextrose 50%) 50 ml Q30M PRN IV Hypoglycemia 06/19/18 14:15 07/18/18 10:14 Heparin Sodium (Porcine) (Heparin 5000 units/ml) 5,000 units EVERY 12 HOURS SUBQ 06/19/18 21:00 07/18/18 20:59 06/20/18 08:51 Iopamidol (Isovue-370 150ml) 150 ml NOW PRN INJ Radiology Procedure 06/20/18 07:45 07/20/18 07:44 Methylprednisolone Sodium Succinate (Solu-MEDROL) 60 mg EVERY 6 HOURS IV 06/19/18 18:00 07/18/18 11:59 06/20/18 06:22 Nitroglycerin (Ntg) 0.4 mg Q5M X 3 DOSES PRN SL Prn Chest Pain 06/19/18 14:00 07/18/18 10:14 Ondansetron HCl (Zofran) 4 mg Q6H PRN IVP Nausea & Vomiting 06/19/18 13:58 5/26/19 13:57 Piperacillin Sod/ Tazobactam Sod 3.375 gm/Sodium Chloride 110 ml @ 27.5 mls/hr EVERY 8 HOURS IVPB 06/19/18 22:00 06/23/18 21:59 06/20/18 06:15 Promethazine HCl/ Codeine (Phenergan with Codeine) 5 ml Q6H PRN ORAL cough 06/19/18 13:58 07/19/18 13:57 06/20/18 08:50 Temazepam (Restoril) 15 mg HSPRN PRN ORAL Insomnia 06/19/18 13:58 06/26/18 13:57 Theophylline (Stephen-Dur) 100 mg EVERY 12 HOURS ORAL 06/19/18 21:00 07/18/18 20:59 06/20/18 08:50 Vancomycin HCl (Vanco rx to dose) 1 ea DAILY PRN MISC Per rx protocol 06/20/18 09:00 07/19/18 10:29 Vancomycin HCl 500 mg/Dextrose 110 ml @ 110 mls/hr Q12HR@0000,1200 IVPB 06/20/18 00:00 06/24/18 11:59 06/20/18 00:21 Assessment/Plan Assessment/Plan: Abx: IV Vancomycin 06/19- Zosyn 06/18- Assessment: Respiratory distress- acute exacerbation of chronic lung disease w/ probable concomitant acute bronchitis -CTA Chest: Negative for evidence of acute pulmonary embolus. Areas of scarring, as described. Cystic spaces in both lower lobes may represent pulmonary fibrosis with cystic bronchiectasis. No definite acute pulmonary process. Noncalcified 4 mm right lower lobe nodule. Consider follow-up CT in 6- 12 months if there are risk factors for lung carcinoma. 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 T6 and T9 vertebral body compression fractures, age indeterminate. Consider MRI for better characterization if clinically relevant -influenza sc eng Mold in sputum cx- ?colonizer vs real- Pt does have fibrosis/cystic lesions on CT which fungus often colonize- Will further evaluate w/ repeat fungus sp cx, fungitell and Asp ag CONS bacteremic- likely contaminant -06/18 Bcx 2/4 CONS Afebrile No leukocytosis unspecified lung disease/Pulmonary fibrosis Plan: -Continue empiric IV Vancomycin #2 pending repeat Bcx -if repeat Bcx Neg will d/c -Switch Zosyn #3/5 to PO Levaquin for acute bronchitis -f/u cx -Monitor CBC/CMP, temperatures -Fungus sp cx, Aspergillus ag, Fungitell, HIV ab -aspiration precautions Thank you for this consultation. Will continue to follow along with you. Discussed with RN and lorne at bedside. Mary Carmen Lance M.D. Jun 20, 2018 11:12
[2018-06-20] MEDS: Albuterol/Ipratropium 3ml neb HHN PRN (11:54)
[2018-06-20 12:00] VITALS: BP 137/78
--- NOTE | 2018-06-20 12:10 | NUR ---
CASE MANAGEMENT: REVIEW SI: COPD EXACERBATION T 97.5 HR 102 RR 22 BP 143/90 SAT 94% ROOM AIR IS: LEVAQUIN PO QD VANCO IV Q12HR THEOPHYLLINE PO Q12HR SOLU MEDROL IV Q6HR MED/SURG STATUS DCP: PATIENT IS FROM HOME
--- NOTE | 2018-06-20 13:25 | NUR ---
NURSE NOTES: Patient stated that she did not move her bowel x3 days and RN received order from Dr. Olivas to give colace 100mg TID and miralax 17gm daily @ HS and Dr. Olivas also agreed to give HHN tx Q4hr for wheezing. Order read back and carried out.
[2018-06-20] MEDS: Docusate 100mg cap ORAL SCH ×2 (13:47→18:02)
[2018-06-20] MEDS: Levofloxacin 500mg tab ORAL SCH (13:47)
[2018-06-20] MEDS: Albuterol/Ipratropium 3ml neb HHN SCH ×2 (15:00→19:26)
[2018-06-20 16:00] VITALS: BP 138/83
--- NOTE | 2018-06-20 16:29 | Internal Med Progress Note ---
Subjective Date of Service: Jun 20, 2018 Physician Name Brandon Pepe Attending Physician Darrel Suarez MD Current Medications Medications (Trade) Dose Ordered Sig/Kevin Route PRN Reason Start Time Stop Time Status Last Admin Dose Admin Albuterol/ Ipratropium (Albuterol/ Ipratropium) 3 ml Q4H PRN HHN dyspnea 06/19/18 13:57 06/24/18 13:56 06/20/18 11:54 Albuterol/ Ipratropium (Albuterol/ Ipratropium) 3 ml Q4HRT HHN 06/20/18 15:00 06/25/18 14:59 Dextrose (Dextrose 50%) 25 ml Q30M PRN IV Hypoglycemia 06/19/18 14:15 07/18/18 10:14 Dextrose (Dextrose 50%) 50 ml Q30M PRN IV Hypoglycemia 06/19/18 14:15 07/18/18 10:14 Docusate Sodium (Colace) 100 mg THREE TIMES A DAY ORAL 06/20/18 13:00 07/20/18 12:59 06/20/18 13:47 Heparin Sodium (Porcine) (Heparin 5000 units/ml) 5,000 units EVERY 12 HOURS SUBQ 06/19/18 21:00 07/18/18 20:59 06/20/18 08:51 Iopamidol (Isovue-370 150ml) 150 ml NOW PRN INJ Radiology Procedure 06/20/18 07:45 07/20/18 07:44 Levofloxacin (Levaquin) 500 mg EVERY OTHER DAY ORAL 06/20/18 14:00 06/22/18 23:59 06/20/18 13:47 Methylprednisolone Sodium Succinate (Solu-MEDROL) 60 mg EVERY 6 HOURS IV 06/19/18 18:00 07/18/18 11:59 06/20/18 12:24 Nitroglycerin (Ntg) 0.4 mg Q5M X 3 DOSES PRN SL Prn Chest Pain 06/19/18 14:00 07/18/18 10:14 Ondansetron HCl (Zofran) 4 mg Q6H PRN IVP Nausea & Vomiting 06/19/18 13:58 07/19/18 13:57 Polyethylene Glycol (Miralax) 17 gm BEDTIME ORAL 06/20/18 21:00 07/20/18 20:59 Promethazine HCl/ Codeine (Phenergan with Codeine) 5 ml Q6H PRN ORAL cough 06/19/18 13:58 07/19/18 13:57 06/20/18 08:50 Temazepam (Restoril) 15 mg HSPRN PRN ORAL Insomnia 06/19/18 13:58 06/26/18 13:57 Theophylline (Stephen-Dur) 100 mg EVERY 12 HOURS ORAL 06/19/18 21:00 07/18/18 20:59 06/20/18 08:50 Vancomycin HCl (Vanco rx to dose) 1 ea DAILY PRN MISC Per rx protocol 06/20/18 09:00 07/19/18 10:29 Vancomycin HCl 500 mg/Dextrose 110 ml @ 110 mls/hr Q12HR@0000,1200 IVPB 06/20/18 00:00 06/24/18 11:59 06/20/18 12:24 Allergies: Coded Allergies: No Known Allergies (Unverified , 06/18/18) ROS Limited/Unobtainable: No Constitutional: Reports: no symptoms HEENT: Reports: no symptoms Cardiovascular: Reports: no symptoms Respiratory: Reports: SOB at rest, wheezing Gastrointestinal/Abdominal: Reports: no symptoms Genitourinary: Reports: no symptoms Neurologic/Psychiatric: Reports: no symptoms Subjective 88 YO F admitted with shortness of breath. Now pulmonary fibrosis. Cover for Int Med-Dr Suarez Objective Last Vital Signs Date Time Temp Pulse Resp B/P (MAP) Pulse Ox O2 Delivery O2 Flow Rate FiO2 06/20/18 12:06 102 22 100 Room Air 21 06/20/18 12:00 98.2 137/78 (97) 06/18/18 16:21 2.0 Microbiology Date/Time Source Procedure Growth Status 06/18/18 06:15 Blood Blood Culture - Preliminary Staphylococcus Sp Coag Neg Resulted 06/18/18 06:00 Blood Blood Culture - Preliminary Staphylococcus Sp Coag Neg Resulted 06/18/18 15:01 Sputum Gram Stain - Final Resulted 06/18/18 15:01 Sputum Culture - Preliminary MOLD Usual Upper Respiratory Marielos Resulted 06/18/18 07:55 Nasal Nares - Final Complete 06/18/18 07:55 Nasal Nares - Final Complete Intake and Output 06/19/18 06/20/18 19:00 07:00 Intake Total 460.0 ml Balance 460.0 ml Intake Oral 240 ml IV Total 220.0 ml # Voids 2 Objective PHYSICAL EXAMINATION: GENERAL: The patient is a well-developed and well-nourished [place] female, in no apparent distress. HEENT: Eyes, pupils are equal and responsive to light and accommodation. Extraocular movements are intact. NECK: Supple without lymphadenopathy. CHEST: Diffuse wheezes in the bilateral lung field, but otherwise, without crackles. ABDOMEN: Soft, nontender, and nondistended. Positive bowel sounds. No evidence of hepatosplenomegaly. Currently, no rebound or guarding noted. EXTREMITIES: Negative for clubbing, cyanosis, or edema. RECTAL/GENITAL: Refused. NEUROLOGIC: Cranial nerves II through XII are grossly intact without focal deficits. Motor strength is 5/5 bilaterally. Deep tendon reflexes are 2+ plantar. Assessment/Plan Assessment/Plan ASSESSMENT: This is an 88-year-old [place] female. 1. Respiratory distress. 2. Shortness of breath. 3. Pulmonary fibrosis. TREATMENT: 1. Pulmonary fibrosis/respiratory distress/shortness of breath. A Pulmonary consultation has been obtained with Dr. Steve Olivas. Continue intravenous Zosyn and intravenous Solu-Medrol. We will follow recommendation of Pulmonary. Brandon Pepe MD Jun 20, 2018 16:29
--- NOTE | 2018-06-20 19:43 | NUR ---
HAND-OFF: Report given to Enedina.
[2018-06-20 20:00] VITALS: BP 150/89
--- NOTE | 2018-06-20 20:00 | NUR ---
NURSE NOTES: PT IN BED, ON RA, NO SOB, NO ACUTE DISTRESS, DENIES PAIN. RFA IV INTACT, PATENT RUNNING TKO. IN STABLE CONDITION. BED IN LOWEST POSITION, LOCKED, ALARMS ON. CALL LIGHT IN REACH. FAMILY BY BED SIDE.
[2018-06-20] MEDS: Miralax 17gm pkt ORAL SCH (21:04)
[2018-06-21] VITALS: BP 153/91
[2018-06-21] MEDS: Albuterol/Ipratropium 3ml neb HHN SCH ×6 (00:15→19:34)
[2018-06-21] MEDS: Solu-MEDROL 125mg Inj IV SCH ×4 (00:42→21:45)
[2018-06-21] MEDS: Vancomycin 750mg/D5W 275ml IVPB SCH ×6 (00:50→23:45)
[2018-06-21 04:00] VITALS: BP 134/77
[2018-06-21] MEDS: Albuterol/Ipratropium 3ml neb HHN PRN (05:53)
[2018-06-21 06:59] LABS: ANION GAP 15 mmol/L (5-15); BLOOD UREA NITROGEN 32 mg/dL (7-18); CALCIUM 8.7 MG/DL (8.5-10.1); CARBON DIOXIDE 21 MMOL/L (21-32); CHLORIDE 105 MMOL/L (98-107); CREATININE 1.4 MG/DL (0.55-1.30); POTASSIUM 3.5 MMOL/L (3.5-5.1); SODIUM 141 MMOL/L (136-145)
[2018-06-21 06:59] LABS: HEMATOCRIT 37.4 % (37.0-47.0); MEAN CORPUSCULAR VOLUME 89 FL (80-99); PLATELET COUNT 191 K/UL (150-450); RED BLOOD COUNT 4.22 M/UL (4.20-5.40); RED CELL DISTRIBUTION WIDTH 11.4 % (11.6-14.8); WHITE BLOOD COUNT 10.1 K/UL (4.8-10.8)
--- NOTE | 2018-06-21 07:25 | NUR ---
HAND-OFF: Report given to CRYSTAL ALANIS.
--- NOTE | 2018-06-21 07:30 | NUR ---
NURSE NOTES: Received patient in bed, awake, not in acute distress having breakfast without difficulties. No wheezing or congestion @ this time. Denies SOB. IV intact, no s/s of infiltration. Bed is in lowest position and locked. Call light within reach. Will continue plan of care.
[2018-06-21 08:00] VITALS: BP 146/85
[2018-06-21] MEDS: Docusate 100mg cap ORAL SCH ×4 (08:40→17:53)
[2018-06-21] MEDS: Theophylline ER 100mg ORAL SCH ×2 (08:40→21:41)
[2018-06-21] MEDS: Heparin 5000 units/ml inj SUBQ SCH ×2 (08:40→21:44)
[2018-06-21 12:00] VITALS: BP 154/99
--- NOTE | 2018-06-21 13:00 | NUR ---
NURSE NOTES: Patient stated that she had bowel movement this morning so she refused to take medicine. Will continue to monitor.
--- NOTE | 2018-06-21 14:52 | Pulmonology Progress Note ---
Assessment/Plan Problems: (1) Acute asthma exacerbation (2) Purulent bronchitis Assessment/Plan still wheezing continue current dose of sterids continue abx theophylline Subjective ROS Limited/Unobtainable: No Constitutional: Reports: no symptoms HEENT: Repors: no symptoms Respiratory: Reports: no symptoms Allergies: Coded Allergies: No Known Allergies (Unverified , 06/18/18) Objective Last 24 Hour Vital Signs Date Time Temp Pulse Resp B/P (MAP) Pulse Ox O2 Delivery O2 Flow Rate FiO2 06/21/18 12:00 98.8 101 16 154/99 (117) 99 06/21/18 11:40 77 20 97 Room Air 21 06/21/18 11:29 101 18 93 Room Air 21 06/21/18 09:00 Room Air 06/21/18 08:00 98.8 98 18 146/85 (105) 99 06/21/18 07:57 Room Air 06/21/18 07:55 Room Air 06/21/18 06:04 97 20 98 Room Air 21 06/21/18 05:53 98 20 93 Room Air 21 06/21/18 04:00 99.1 66 20 134/77 (96) 96 06/21/18 03:39 68 20 99 Room Air 21 06/21/18 03:23 65 20 97 Room Air 21 06/21/18 00:25 75 20 100 Room Air 21 06/21/18 00:15 72 20 98 Room Air 21 06/21/18 00:00 98.8 90 18 153/91 (111) 93 06/20/18 21:00 Room Air 06/20/18 20:00 99.1 86 17 150/89 (109) 92 06/20/18 19:36 80 20 99 Room Air 21 06/20/18 19:26 77 20 98 Room Air 06/20/18 16:00 97.9 86 19 138/83 (101) 95 Intake and Output 06/20/18 06/21/18 19:00 07:00 Intake Total 1020.0 ml 275.000 ml Balance 1020.0 ml 275.000 ml IV Total 220.0 ml 275.000 ml Other 800 ml # Voids 3 Objective General Appearance: WD/WN Lines, tubes and drains: peripheral HEENT: normocephalic, atraumatic Neck: non-tender, normal alignment Respiratory/Chest: chest wall non-tender, lungs clear Cardiovascular/Chest: normal peripheral pulses, normal rate Abdomen: normal bowel sounds Extremities: normal range of motion Microbiology Date/Time Source Procedure Growth Status 06/18/18 15:01 Sputum Gram Stain - Final Resulted 06/18/18 15:01 Sputum Culture - Preliminary MOLD Usual Upper Respiratory Marielos Resulted Laboratory Tests 06/20/18 22:55: Vancomycin Level Trough 9.6 06/21/18 06:00: Sodium Level 141, Potassium Level 3.5, Chloride Level 105, Carbon Dioxide Level 21, Anion Gap 15, Blood Urea Nitrogen 32H, Creatinine 1.4H, Estimat Glomerular Filtration Rate , Glucose Level 172H, Calcium Level 8.7 06/21/18 06:30: HIV (1&2) Antibody Rapid Negative 06/21/18 06:35: White Blood Count 10.1, Red Blood Count 4.22, Hemoglobin 13.0, Hematocrit 37.4, Mean Corpuscular Volume 89, Mean Corpuscular Hemoglobin 30.9, Mean Corpuscular Hemoglobin Concent 34.9, Red Cell Distribution Width 11.4L, Platelet Count 191, Mean Platelet Volume 6.9, Neutrophils (%) (Auto) , Lymphocytes (%) (Auto) , Monocytes (%) (Auto) , Eosinophils (%) (Auto) , Basophils (%) (Auto) , Differential Total Cells Counted 100, Neutrophils % (Manual) 86H, Lymphocytes % (Manual) 7L, Monocytes % (Manual) 7, Eosinophils % (Manual) 0, Basophils % ( Manual) 0, Band Neutrophils 0, Platelet Estimate Adequate, Platelet Morphology Normal, Red Blood Cell Morphology Normal Current Medications Medications (Trade) Dose Ordered Sig/Kevin Route PRN Reason Start Time Stop Time Status Last Admin Dose Admin Albuterol/ Ipratropium (Albuterol/ Ipratropium) 3 ml Q4H PRN HHN dyspnea 06/19/18 13:57 06/24/18 13:56 06/21/18 05:53 Albuterol/ Ipratropium (Albuterol/ Ipratropium) 3 ml Q4HRT HHN 06/20/18 15:00 06/25/18 14:59 06/21/18 11:29 Dextrose (Dextrose 50%) 25 ml Q30M PRN IV Hypoglycemia 06/19/18 14:15 07/18/18 10:14 Dextrose (Dextrose 50%) 50 ml Q30M PRN IV Hypoglycemia 06/19/18 14:15 07/18/18 10:14 Docusate Sodium (Colace) 100 mg THREE TIMES A DAY ORAL 06/20/18 13:00 07/20/18 12:59 06/21/18 13:21 Heparin Sodium (Porcine) (Heparin 5000 units/ml) 5,000 units EVERY 12 HOURS SUBQ 06/19/18 21:00 07/18/18 20:59 06/21/18 08:40 Iopamidol (Isovue-370 150ml) 150 ml NOW PRN INJ Radiology Procedure 06/20/18 07:45 07/20/18 07:44 Levofloxacin (Levaquin) 500 mg EVERY OTHER DAY ORAL 06/20/18 14:00 06/22/18 23:59 06/20/18 13:47 Methylprednisolone Sodium Succinate (Solu-MEDROL) 60 mg EVERY 6 HOURS IV 06/19/18 18:00 07/18/18 11:59 06/21/18 13:21 Nitroglycerin (Ntg) 0.4 mg Q5M X 3 DOSES PRN SL Prn Chest Pain 06/19/18 14:00 07/18/18 10:14 Ondansetron HCl (Zofran) 4 mg Q6H PRN IVP Nausea & Vomiting 06/19/18 13:58 07/19/18 13:57 Polyethylene Glycol (Miralax) 17 gm BEDTIME ORAL 06/20/18 21:00 07/20/18 20:59 06/20/18 21:04 Promethazine HCl/ Codeine (Phenergan with Codeine) 5 ml Q6H PRN ORAL cough 06/19/18 13:58 07/19/18 13:57 06/20/18 08:50 Temazepam (Restoril) 15 mg HSPRN PRN ORAL Insomnia 06/19/18 13:58 06/26/18 13:57 Theophylline (Stephen-Dur) 100 mg EVERY 12 HOURS ORAL 06/19/18 21:00 07/18/18 20:59 06/21/18 08:40 Vancomycin HCl (Vanco rx to dose) 1 ea DAILY PRN MISC Per rx protocol 06/20/18 09:00 07/19/18 10:29 Vancomycin HCl 750 mg/Dextrose 275 ml @ 183.333 mls/hr Q12H IVPB 06/21/18 00:00 06/26/18 00:00 06/21/18 13:21 Steve Olivas MD Jun 21, 2018 14:52
[2018-06-21 16:00] VITALS: BP 149/88
--- NOTE | 2018-06-21 16:33 | Internal Med Progress Note ---
Subjective Date of Service: Jun 21, 2018 Physician Name Brandon Pepe Attending Physician Darrel Suarez MD Current Medications Medications (Trade) Dose Ordered Sig/Kevin Route PRN Reason Start Time Stop Time Status Last Admin Dose Admin Albuterol/ Ipratropium (Albuterol/ Ipratropium) 3 ml Q4H PRN HHN dyspnea 06/19/18 13:57 06/24/18 13:56 06/21/18 05:53 Albuterol/ Ipratropium (Albuterol/ Ipratropium) 3 ml Q4HRT HHN 06/20/18 15:00 06/25/18 14:59 06/21/18 15:51 Dextrose (Dextrose 50%) 25 ml Q30M PRN IV Hypoglycemia 06/19/18 14:15 07/18/18 10:14 Dextrose (Dextrose 50%) 50 ml Q30M PRN IV Hypoglycemia 06/19/18 14:15 07/18/18 10:14 Docusate Sodium (Colace) 100 mg THREE TIMES A DAY ORAL 06/20/18 13:00 07/20/18 12:59 06/21/18 08:40 Heparin Sodium (Porcine) (Heparin 5000 units/ml) 5,000 units EVERY 12 HOURS SUBQ 06/19/18 21:00 07/18/18 20:59 06/21/18 08:40 Iopamidol (Isovue-370 150ml) 150 ml NOW PRN INJ Radiology Procedure 06/20/18 07:45 07/20/18 07:44 Levofloxacin (Levaquin) 500 mg EVERY OTHER DAY ORAL 06/20/18 14:00 06/22/18 23:59 06/20/18 13:47 Methylprednisolone Sodium Succinate (Solu-MEDROL) 60 mg EVERY 8 HOURS IV 06/21/18 22:00 07/18/18 11:59 Nitroglycerin (Ntg) 0.4 mg Q5M X 3 DOSES PRN SL Prn Chest Pain 06/19/18 14:00 07/18/18 10:14 Ondansetron HCl (Zofran) 4 mg Q6H PRN IVP Nausea & Vomiting 06/19/18 13:58 07/19/18 13:57 Polyethylene Glycol (Miralax) 17 gm BEDTIME ORAL 06/20/18 21:00 07/20/18 20:59 06/20/18 21:04 Promethazine HCl/ Codeine (Phenergan with Codeine) 5 ml Q6H PRN ORAL cough 06/19/18 13:58 07/19/18 13:57 06/20/18 08:50 Temazepam (Restoril) 15 mg HSPRN PRN ORAL Insomnia 06/19/18 13:58 06/26/18 13:57 Theophylline (Stephen-Dur) 100 mg EVERY 12 HOURS ORAL 06/19/18 21:00 07/18/18 20:59 06/21/18 08:40 Vancomycin HCl (Vanco rx to dose) 1 ea DAILY PRN MISC Per rx protocol 06/20/18 09:00 07/19/18 10:29 Vancomycin HCl 750 mg/Dextrose 275 ml @ 183.333 mls/hr Q12H IVPB 06/21/18 00:00 06/26/18 00:00 06/21/18 13:21 Allergies: Coded Allergies: No Known Allergies (Unverified , 06/18/18) ROS Limited/Unobtainable: No Constitutional: Reports: no symptoms HEENT: Reports: no symptoms Cardiovascular: Reports: no symptoms Respiratory: Reports: shortness of breath Gastrointestinal/Abdominal: Reports: no symptoms Genitourinary: Reports: no symptoms Neurologic/Psychiatric: Reports: no symptoms Subjective 88 YO F admitted with shortness of breath. Now pulmonary fibrosis. Cover for Int [facility]-Dr Suarez Objective Last Vital Signs Date Time Temp Pulse Resp B/P (MAP) Pulse Ox O2 Delivery O2 Flow Rate FiO2 06/21/18 16:00 86 20 98 Room Air 21 06/21/18 12:00 98.8 154/99 (117) 06/18/18 16:21 2.0 Laboratory Tests Test 06/20/18 22:55 06/21/18 06:00 06/21/18 06:30 06/21/18 06:35 Vancomycin Level Trough 9.6 ug/mL (5.0-12.0) Sodium Level 141 MMOL/L (136-145) Potassium Level 3.5 MMOL/L (3.5-5.1) Chloride Level 105 MMOL/L (98-107) Carbon Dioxide Level 21 MMOL/L (21-32) Anion Gap 15 mmol/L (5-15) Blood Urea Nitrogen 32 mg/dL (7-18) H Creatinine 1.4 MG/DL (0.55-1.30) H Estimat Glomerular Filtration Rate mL/min (>60) Glucose Level 172 MG/DL (74-106) H Calcium Level 8.7 MG/DL (8.5-10.1) HIV (1&2) Antibody Rapid Negative (NEGATIVE) White Blood Count 10.1 K/UL (4.8-10.8) Red Blood Count 4.22 M/UL (4.20-5.40) Hemoglobin 13.0 G/DL (12.0-16.0) Hematocrit 37.4 % (37.0-47.0) Mean Corpuscular Volume 89 FL (80-99) Mean Corpuscular Hemoglobin 30.9 PG (27.0-31.0) Mean Corpuscular Hemoglobin Concent 34.9 G/DL (32.0-36.0) Red Cell Distribution Width 11.4 % (11.6-14.8) L Platelet Count 191 K/UL (150-450) Mean Platelet Volume 6.9 FL (6.5-10.1) Neutrophils (%) (Auto) % (45.0-75.0) Lymphocytes (%) (Auto) % (20.0-45.0) Monocytes (%) (Auto) % (1.0-10.0) Eosinophils (%) (Auto) % (0.0-3.0) Basophils (%) (Auto) % (0.0-2.0) Differential Total Cells Counted 100 Neutrophils % (Manual) 86 % (45-75) H Lymphocytes % (Manual) 7 % (20-45) L Monocytes % (Manual) 7 % (1-10) Eosinophils % (Manual) 0 % (0-3) Basophils % (Manual) 0 % (0-2) Band Neutrophils 0 % (0-8) Platelet Estimate Adequate Platelet Morphology Normal Red Blood Cell Morphology Normal Intake and Output 06/20/18 06/21/18 19:00 07:00 Intake Total 1020.0 ml 275.000 ml Balance 1020.0 ml 275.000 ml IV Total 220.0 ml 275.000 ml Other 800 ml # Voids 3 Objective PHYSICAL EXAMINATION: GENERAL: The patient is a well-developed and well-nourished [place] female, in no apparent distress. HEENT: Eyes, pupils are equal and responsive to light and accommodation. Extraocular movements are intact. NECK: Supple without lymphadenopathy. CHEST: Diffuse wheezes in the bilateral lung field, but otherwise, without crackles. ABDOMEN: Soft, nontender, and nondistended. Positive bowel sounds. No evidence of hepatosplenomegaly. Currently, no rebound or guarding noted. EXTREMITIES: Negative for clubbing, cyanosis, or edema. RECTAL/GENITAL: Refused. NEUROLOGIC: Cranial nerves II through XII are grossly intact without focal deficits. Motor strength is 5/5 bilaterally. Deep tendon reflexes are 2+ plantar. Assessment/Plan Assessment/Plan ASSESSMENT: This is an 88-year-old [place] female. 1. Respiratory distress. 2. Shortness of breath. 3. Pulmonary fibrosis. 4. Bronchitis TREATMENT: 1. Pulmonary fibrosis/respiratory distress/shortness of breath. A Pulmonary consultation has been obtained with Dr. Steve Olivas. Continue intravenous vanco and levaquin. D/C intravenous Solu-Medrol. We will follow recommendation of Pulmonary and ID. Brandon Pepe MD Jun 21, 2018 16:33
--- NOTE | 2018-06-21 19:29 | NUR ---
HAND-OFF: Report given to Talha Cosme.
[2018-06-21 20:00] VITALS: BP 158/85
[2018-06-21] MEDS: Miralax 17gm pkt ORAL SCH (21:51)
[2018-06-22] VITALS: BP 156/90
[2018-06-22] MEDS: Albuterol/Ipratropium 3ml neb HHN SCH ×5 (01:20→15:47)
[2018-06-22 04:00] VITALS: BP 150/89
[2018-06-22] MEDS: Solu-MEDROL 125mg Inj IV SCH ×3 (05:51→14:20)
--- NOTE | 2018-06-22 07:45 | NUR ---
HAND-OFF: Report given to CARLOS WITH STABLE CONDITION,NO DISTRESS NOTED RN.
[2018-06-22 07:51] LABS: HEMATOCRIT 36.3 % (37.0-47.0); HEMOGLOBIN 12.3 G/DL (12.0-16.0); MEAN CORPUSCULAR VOLUME 90 FL (80-99); PLATELET COUNT 191 K/UL (150-450); RED BLOOD COUNT 4.01 M/UL (4.20-5.40); RED CELL DISTRIBUTION WIDTH 11.7 % (11.6-14.8); WHITE BLOOD COUNT 9.5 K/UL (4.8-10.8)
--- NOTE | 2018-06-22 08:08 | NUR ---
NURSE NOTES: Patient is awake and alert,respiration unlabored,patient ,no complaints at this time.Patient ate breakfast.Call light within reach,bed alarm is on.
[2018-06-22 08:59] VITALS: BP 157/90
[2018-06-22 09:02] LABS: ALANINE AMINOTRANSFERASE 16 U/L (12-78); ALBUMIN 3.1 G/DL (3.4-5.0); ALBUMIN/GLOBULIN RATIO 0.9 (1.0-2.7); ALKALINE PHOSPHATASE 65 U/L (46-116); ANION GAP 12 mmol/L (5-15); ASPARTATE AMINO TRANSFERASE 15 U/L (15-37); BILIRUBIN,TOTAL 0.3 MG/DL (0.2-1.0); BLOOD UREA NITROGEN 25 mg/dL (7-18); CALCIUM 8.6 MG/DL (8.5-10.1); CARBON DIOXIDE 24 MMOL/L (21-32); CHLORIDE 104 MMOL/L (98-107); CREATININE 1.1 MG/DL (0.55-1.30); PHOSPHORUS 3.2 MG/DL (2.5-4.9); POTASSIUM 3.5 MMOL/L (3.5-5.1); SODIUM 140 MMOL/L (136-145)
[2018-06-22] MEDS: Levofloxacin 500mg tab ORAL SCH (09:08)
[2018-06-22] MEDS: Theophylline ER 100mg ORAL SCH (09:09)
[2018-06-22] MEDS: Docusate 100mg cap ORAL SCH ×2 (09:09→14:25)
[2018-06-22] MEDS: Heparin 5000 units/ml inj SUBQ SCH (09:10)
[2018-06-22] MEDS ORDERED: LEVAQUIN500 MG ORAL (12:00)
[2018-06-22] MEDS ORDERED: MEDROL DOSEPAK4 MG ORAL (12:00)
[2018-06-22] MEDS ORDERED: THEOPHYLLINE A100 MG ORAL (12:00)
--- NOTE | 2018-06-22 12:02 | Pulmonology Progress Note ---
Assessment/Plan Problems: (1) Acute asthma exacerbation (2) Purulent bronchitis Assessment/Plan feeling less short of breath watns to go home continue current dose of sterids continue abx theophylline Subjective ROS Limited/Unobtainable: No Allergies: Coded Allergies: No Known Allergies (Unverified , 06/18/18) Objective Last 24 Hour Vital Signs Date Time Temp Pulse Resp B/P (MAP) Pulse Ox O2 Delivery O2 Flow Rate FiO2 06/22/18 11:09 86 20 98 Room Air 21 06/22/18 10:55 86 18 94 Room Air 21 06/22/18 09:00 Room Air 06/22/18 08:59 98.0 107 18 157/90 (112) 93 06/22/18 07:12 93 20 98 Room Air 21 06/22/18 07:02 94 20 95 Room Air 21 06/22/18 04:00 98.4 82 18 150/89 (109) 98 06/22/18 03:34 98 18 98 Room Air 21 06/22/18 03:24 91 18 92 Room Air 21 06/22/18 01:38 95 18 99 Room Air 21 06/22/18 01:22 92 16 93 Room Air 21 06/22/18 00:00 99.3 90 19 156/90 (112) 97 06/21/18 21:00 Room Air 06/21/18 20:00 99.1 85 18 158/85 (109) 97 06/21/18 19:56 86 18 99 Room Air 21 06/21/18 19:34 80 16 92 Room Air 21 06/21/18 16:00 98.2 100 16 149/88 (108) 99 06/21/18 16:00 86 20 98 Room Air 21 06/21/18 15:51 86 16 93 Room Air 21 Intake and Output 06/21/18 06/22/18 19:00 07:00 Intake Total 1775.000 ml 575.3 ml Balance 1775.000 ml 575.3 ml Intake Oral 1500 ml 300 ml IV Total 275.000 ml 275.3 ml # Voids 4 4 # Bowel Movements 1 Objective General Appearance: WD/WN Lines, tubes and drains: peripheral HEENT: normocephalic, atraumatic Neck: non-tender, normal alignment Respiratory/Chest: chest wall non-tender, lungs clear Cardiovascular/Chest: normal peripheral pulses, normal rate Abdomen: normal bowel sounds Extremities: normal range of motion Laboratory Tests 06/22/18 05:43: White Blood Count 9.5, Red Blood Count 4.01L, Hemoglobin 12.3, Hematocrit 36.3L , Mean Corpuscular Volume 90, Mean Corpuscular Hemoglobin 30.6, Mean Corpuscular Hemoglobin Concent 33.8, Red Cell Distribution Width 11.7, Platelet Count 191, Mean Platelet Volume 7.3, Neutrophils (%) (Auto) , Lymphocytes (%) ( Auto) , Monocytes (%) (Auto) , Eosinophils (%) (Auto) , Basophils (%) (Auto) , Differential Total Cells Counted 100, Neutrophils % (Manual) 83H, Lymphocytes % (Manual) 11L, Monocytes % (Manual) 6, Eosinophils % (Manual) 0, Basophils % ( Manual) 0, Band Neutrophils 0, Platelet Estimate Adequate, Platelet Morphology Normal, Red Blood Cell Morphology Normal, Prothrombin Time 10.7, Prothromb Time International Ratio 1.0, Activated Partial Thromboplast Time 24, Sodium Level 140, Potassium Level 3.5, Chloride Level 104, Carbon Dioxide Level 24, Anion Gap 12, Blood Urea Nitrogen 25H, Creatinine 1.1, Estimat Glomerular Filtration Rate , Glucose Level 142H, Calcium Level 8.6, Phosphorus Level 3.2, Magnesium Level 2.0, Total Bilirubin 0.3, Aspartate Amino Transf (AST/SGOT) 15, Alanine Aminotransferase (ALT/SGPT) 16, Alkaline Phosphatase 65, Total Protein 6.4, Albumin 3.1L, Globulin 3.3, Albumin/Globulin Ratio 0.9L Current Medications Medications (Trade) Dose Ordered Sig/Kevin Route PRN Reason Start Time Stop Time Status Last Admin Dose Admin Albuterol/ Ipratropium (Albuterol/ Ipratropium) 3 ml Q4H PRN HHN dyspnea 06/19/18 13:57 06/24/18 13:56 06/21/18 05:53 Albuterol/ Ipratropium (Albuterol/ Ipratropium) 3 ml Q4HRT HHN 06/20/18 15:00 06/25/18 14:59 06/22/18 10:55 Dextrose (Dextrose 50%) 25 ml Q30M PRN IV Hypoglycemia 06/19/18 14:15 07/18/18 10:14 Dextrose (Dextrose 50%) 50 ml Q30M PRN IV Hypoglycemia 06/19/18 14:15 07/18/18 10:14 Docusate Sodium (Colace) 100 mg THREE TIMES A DAY ORAL 06/20/18 13:00 07/20/18 12:59 06/22/18 09:09 Heparin Sodium (Porcine) (Heparin 5000 units/ml) 5,000 units EVERY 12 HOURS SUBQ 06/19/18 21:00 07/18/18 20:59 06/22/18 09:10 Iopamidol (Isovue-370 150ml) 150 ml NOW PRN INJ Radiology Procedure 06/20/18 07:45 07/20/18 07:44 Levofloxacin (Levaquin) 500 mg EVERY OTHER DAY ORAL 06/20/18 14:00 06/22/18 23:59 06/22/18 09:08 Methylprednisolone Sodium Succinate (Solu-MEDROL) 60 mg EVERY 8 HOURS IV 06/21/18 22:00 07/18/18 11:59 06/22/18 05:51 Nitroglycerin (Ntg) 0.4 mg Q5M X 3 DOSES PRN SL Prn Chest Pain 06/19/18 14:00 07/18/18 10:14 Ondansetron HCl (Zofran) 4 mg Q6H PRN IVP Nausea & Vomiting 06/19/18 13:58 07/19/18 13:57 Polyethylene Glycol (Miralax) 17 gm BEDTIME ORAL 06/20/18 21:00 07/20/18 20:59 06/21/18 21:51 Promethazine HCl/ Codeine (Phenergan with Codeine) 5 ml Q6H PRN ORAL cough 06/19/18 13:58 07/19/18 13:57 06/20/18 08:50 Temazepam (Restoril) 15 mg HSPRN PRN ORAL Insomnia 06/19/18 13:58 06/26/18 13:57 Theophylline (Stephen-Dur) 100 mg EVERY 12 HOURS ORAL 06/19/18 21:00 07/18/18 20:59 06/22/18 09:09 Vancomycin HCl (Vanco rx to dose) 1 ea DAILY PRN MISC Per rx protocol 06/20/18 09:00 07/19/18 10:29 Vancomycin HCl 750 mg/Dextrose 275 ml @ 183.333 mls/hr Q12H IVPB 06/21/18 00:00 06/26/18 00:00 06/21/18 23:45 Steve Olivas MD Jun 22, 2018 12:02
--- NOTE | 2018-06-22 12:05 | Infectious Diseases Prog Note ---
Assessment/Plan Assessment/Plan Respiratory distress- acute exacerbation of chronic lung disease w/ probable concomitant acute bronchitis -CTA Chest: Negative for evidence of acute pulmonary embolus. Areas of scarring, as described. Cystic spaces in both lower lobes may represent pulmonary fibrosis with cystic bronchiectasis. No definite acute pulmonary process. Noncalcified 4 mm right lower lobe nodule. Consider follow-up CT in 6- 12 months if there are risk factors for lung carcinoma. 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 T6 and T9 vertebral body compression fractures, age indeterminate. Consider MRI for better characterization if clinically relevant -influenza sc eng Mold in sputum cx- ?colonizer vs real- Pt does have fibrosis/cystic lesions on CT which fungus often colonize- Will further evaluate w/ repeat fungus sp cx, fungitell and Asp ag CONS bacteremic- likely contaminant -06/18 Bcx 2/ CONS Afebrile No leukocytosis HIV neg unspecified lung disease/Pulmonary fibrosis Plan: -Continue empiric IV Vancomycin # 4/5 and Levaquin d# 3/5( for acute bronchitis ) -if repeat Bcx Neg will d/c - Switch Zosyn #3 -f/u cx -Monitor CBC/CMP, temperatures -Fungus sp cx, Aspergillus ag, Fungitell, HIV ab -aspiration precautions Subjective Allergies: Coded Allergies: No Known Allergies (Unverified , 06/18/18) Subjective comfortable Objective Vital Signs Last 24 Hour Vital Signs Date Time Temp Pulse Resp B/P (MAP) Pulse Ox O2 Delivery O2 Flow Rate FiO2 06/22/18 11:09 86 20 98 Room Air 06/22/18 10:55 86 18 94 Room Air 06/22/18 09:00 Room Air 06/22/18 08:59 98.0 107 18 157/90 (112) 93 06/22/18 07:12 93 20 98 Room Air 06/22/18 07:02 94 20 95 Room Air 06/22/18 04:00 98.4 82 18 150/89 (109) 98 06/22/18 03:34 98 18 98 Room Air 06/22/18 03:24 91 18 92 Room Air 21 06/22/18 01:38 95 18 99 Room Air 21 06/22/18 01:22 92 16 93 Room Air 06/22/18 00:00 99.3 90 19 156/90 (112) 97 06/21/18 21:00 Room Air 06/21/18 20:00 99.1 85 18 158/85 (109) 97 06/21/18 19:56 86 18 99 Room Air 21 06/21/18 19:34 80 16 92 Room Air 21 06/21/18 16:00 98.2 100 16 149/88 (108) 99 06/21/18 16:00 86 20 98 Room Air 21 06/21/18 15:51 86 16 93 Room Air 21 06/21/18 12:00 98.8 101 16 154/99 (117) 99 Height (Feet): 5 Height (Inches): 4.00 Weight (Pounds): 184 HEENT: anicteric Respiratory/Chest: normal breath sounds Cardiovascular: regular rhythm Abdomen: soft, non tender Laboratory Tests Test 06/22/18 05:43 White Blood Count 9.5 K/UL (4.8-10.8) Red Blood Count 4.01 M/UL (4.20-5.40) L Hemoglobin 12.3 G/DL (12.0-16.0) Hematocrit 36.3 % (37.0-47.0) L Mean Corpuscular Volume 90 FL (80-99) Mean Corpuscular Hemoglobin 30.6 PG (27.0-31.0) Mean Corpuscular Hemoglobin Concent 33.8 G/DL (32.0-36.0) Red Cell Distribution Width 11.7 % (11.6-14.8) Platelet Count 191 K/UL (150-450) Mean Platelet Volume 7.3 FL (6.5-10.1) Neutrophils (%) (Auto) % (45.0-75.0) Lymphocytes (%) (Auto) % (20.0-45.0) Monocytes (%) (Auto) % (1.0-10.0) Eosinophils (%) (Auto) % (0.0-3.0) Basophils (%) (Auto) % (0.0-2.0) Differential Total Cells Counted 100 Neutrophils % (Manual) 83 % (45-75) H Lymphocytes % (Manual) 11 % (20-45) L Monocytes % (Manual) 6 % (1-10) Eosinophils % (Manual) 0 % (0-3) Basophils % (Manual) 0 % (0-2) Band Neutrophils 0 % (0-8) Platelet Estimate Adequate Platelet Morphology Normal Red Blood Cell Morphology Normal Prothrombin Time 10.7 SEC (9.30-11.50) Prothromb Time International Ratio 1.0 (0.9-1.1) Activated Partial Thromboplast Time 24 SEC (23-33) Sodium Level 140 MMOL/L (136-145) Potassium Level 3.5 MMOL/L (3.5-5.1) Chloride Level 104 MMOL/L (98-107) Carbon Dioxide Level 24 MMOL/L (21-32) Anion Gap 12 mmol/L (5-15) Blood Urea Nitrogen 25 mg/dL (7-18) H Creatinine 1.1 MG/DL (0.55-1.30) Estimat Glomerular Filtration Rate mL/min (>60) Glucose Level 142 MG/DL (74-106) H Calcium Level 8.6 MG/DL (8.5-10.1) Phosphorus Level 3.2 MG/DL (2.5-4.9) Magnesium Level 2.0 MG/DL (1.8-2.4) Total Bilirubin 0.3 MG/DL (0.2-1.0) Aspartate Amino Transf (AST/SGOT) 15 U/L (15-37) Alanine Aminotransferase (ALT/SGPT) 16 U/L (12-78) Alkaline Phosphatase 65 U/L (46-116) Total Protein 6.4 G/DL (6.4-8.2) Albumin 3.1 G/DL (3.4-5.0) L Globulin 3.3 g/dL Albumin/Globulin Ratio 0.9 (1.0-2.7) L Current Medications Medications (Trade) Dose Ordered Sig/Kevin Route PRN Reason Start Time Stop Time Status Last Admin Dose Admin Albuterol/ Ipratropium (Albuterol/ Ipratropium) 3 ml Q4H PRN HHN dyspnea 06/19/18 13:57 06/24/18 13:56 06/21/18 05:53 Albuterol/ Ipratropium (Albuterol/ Ipratropium) 3 ml Q4HRT HHN 06/20/18 15:00 06/25/18 14:59 06/22/18 10:55 Dextrose (Dextrose 50%) 25 ml Q30M PRN IV Hypoglycemia 06/19/18 14:15 07/18/18 10:14 Dextrose (Dextrose 50%) 50 ml Q30M PRN IV Hypoglycemia 06/19/18 14:15 07/18/18 10:14 Docusate Sodium (Colace) 100 mg THREE TIMES A DAY ORAL 06/20/18 13:00 07/20/18 12:59 06/22/18 09:09 Heparin Sodium (Porcine) (Heparin 5000 units/ml) 5,000 units EVERY 12 HOURS SUBQ 06/19/18 21:00 07/18/18 20:59 06/22/18 09:10 Iopamidol (Isovue-370 150ml) 150 ml NOW PRN INJ Radiology Procedure 06/20/18 07:45 07/20/18 07:44 Levofloxacin (Levaquin) 500 mg EVERY OTHER DAY ORAL 06/20/18 14:00 06/22/18 23:59 06/22/18 09:08 Methylprednisolone Sodium Succinate (Solu-MEDROL) 60 mg EVERY 8 HOURS IV 06/21/18 22:00 07/18/18 11:59 06/22/18 05:51 Nitroglycerin (Ntg) 0.4 mg Q5M X 3 DOSES PRN SL Prn Chest Pain 06/19/18 14:00 07/18/18 10:14 Ondansetron HCl (Zofran) 4 mg Q6H PRN IVP Nausea & Vomiting 06/19/18 13:58 07/19/18 13:57 Polyethylene Glycol (Miralax) 17 gm BEDTIME ORAL 06/20/18 21:00 07/20/18 20:59 06/21/18 21:51 Promethazine HCl/ Codeine (Phenergan with Codeine) 5 ml Q6H PRN ORAL cough 06/19/18 13:58 07/19/18 13:57 06/20/18 08:50 Temazepam (Restoril) 15 mg HSPRN PRN ORAL Insomnia 06/19/18 13:58 06/26/18 13:57 Theophylline (Stephen-Dur) 100 mg EVERY 12 HOURS ORAL 06/19/18 21:00 07/18/18 20:59 06/22/18 09:09 Vancomycin HCl (Vanco rx to dose) 1 ea DAILY PRN MISC Per rx protocol 06/20/18 09:00 07/19/18 10:29 Vancomycin HCl 750 mg/Dextrose 275 ml @ 183.333 mls/hr Q12H IVPB 06/21/18 00:00 06/26/18 00:00 06/21/18 23:45 Kamar Delgadillo MD Jun 22, 2018 12:05
[2018-06-22] MEDS: Vancomycin 750mg/D5W 275ml IVPB SCH ×2 (14:07)
[2018-06-22 14:29] VITALS: BP 152/98
[2018-06-22 16:00] VITALS: BP 140/96
--- NOTE | 2018-06-22 16:59 | NUR ---
NURSE NOTES: Discharge with discharge instructions given,patient has her personal belongings,IV saline lock removed,ID hospital band removed.Patient has discharge prescriptions.Patient accompany down to lobby,family will take patient home.
--- NOTE | 2018-06-23 09:31 | Discharge Summary ---
Discharge Summary Discharge Summary _ DATE OF ADMISSION: 06/18/2018 DATE OF DISCHARGE:06/22/2018 DISCHARGED BY: Dr Suarez REASON FOR ADMISSION: 88 years old female with past medical history of unspecified lung disease, presented to emergency department with chief complaint of cough, shortness of breath, dyspnea on exertion. Patient started as outpatient on doxycycline and prednisone 3 days ago. Patient denied significant improvement with outpatient management. Patient denied chest pain. No leg swelling. No hemoptysis. Patient reported that she was given in [place] prescription for breathing treatment in the past , but she was never used them. Upon evaluation vital signs revealed tachycardia , tachypnea, elevated blood pressure and hypoxia. Patient initially required nonrebreathing mask. ABG, which was done on nonrebreathing mask, demonstrated pH of 7.3 Patient admitted to for further management. Chest x-ray demonstrated no acute cardiopulmonary pathology. CTA of the chest demonstrated no evidence of acute pulmonary emboli. Areas of scarring noted. Cystic spaces in both lower lobes may represent pulmonary fibrosis with cystic bronchiectasis. No definite acute pulmonary process. Noncalcified 4 mm right lower lobe nodule. Laboratory work-up revealed no leukocytosis , stable hemoglobin and hematocrit , stable electrolytes Troponin negative. EKG revealed sinus rhythm, no acute ischemic changes. Patient was admitted for further management CONSULTANTS: pulmonary Dr. Deisy BOYER specialist Dr. Delgadillo [facility]SE: Patient admitted. Supplemental oxygen provided and titrated to keep pulse oximetry above 90%. Pulmonary toilet provided with nebulizing therapy around the clock and as needed. Patient was started on intravenous steroids with gradual tapering down. Patient was started on empiric antibiotic. Sputum culture revealed mold. Blood culture revealed Staphylococcus epidermidis Trial of theophylline started. Antitussive provided as needed. ID specialist and [facility] steam closely followed. Per infectious disease specialist , bacteremia was likely contaminant. Patient afebrile, no leukocytosis. Sputum culture could be a colonizer versus real. Patient had fibrosis/cystic lesions on CT , where fungi often colonized. Fungal sputum culture, Aspergillus antigen and Fungi-tell still pending at the time of this dictation. HIV test was nonreactive. Patient was on IV vancomycin and Levaquin while in the hospital. Aspiration precaution maintained. DVT prophylaxis provided. Patient was able to be weaned from the 100% nonrebreathing mask to nasal cannula and then to room air. Prior to discharge pulse oximetry was stable on room air . Blood pressure was closely monitored and stabilized as patient clinically improved. Patient clinically stabilized and was ready for discharge home. Patient was discharged on oral antibiotics to complete the course. Recommended to follow-up with CT chest in 6 to 12 months FINAL DIAGNOSES: Acute exacerbation of chronic lung disease with concomitant acute bronchitis Acute asthma exacerbation Purulent bronchitis Pulmonary fibrosis with bronchiectasis Respiratory distress -resolved DISCHARGE MEDICATIONS: See Medication Reconciliation list. DISCHARGE INSTRUCTIONS: Patient was discharged home . Follow up with primary care provider in one week. I have been assigned to dictate discharge summary for this account. I was not involved in the patient's management. Any Sandhu NP Jun 23, 2018 09:31
== END 2018-06-22 17:04 | disposition home or self-care (01) | DRG 192 ==
LOC: EMR 06:08 → 2W 06:18 → EDBEDREQ 06:38 → 4E 06-19 13:49
DX: J44.0 Chronic obstructive pulmonary disease with (acute) lower respiratory infection (principal); J44.1 Chronic obstructive pulmonary disease with (acute) exacerbation; J20.9 Acute bronchitis, unspecified; J84.10 Pulmonary fibrosis, unspecified; R06.03 Acute respiratory distress; J41.1 Mucopurulent chronic bronchitis
CPT/HCPCS: 36415; 36600; 71045; 71275; 80048; 80053; 80202; 82803; 83735; 83880; 84100; 84484; 85007; 85025; 85379; 85610; 85730; 86703; 86710; 87040; 87070; 87181; 87205; 93005; 94640; 94664; 96374; 99291; J7620